=== PATIENT | male | born 1955 | race Caucasian/White ===

== ENCOUNTER 2021-01-06 16:13 | Inpatient (IN) | payer MEDICARE, SELFPAY ==
[2021-01-06] VITALS (11 sets, daily range): BP systolic 83–143; BP diastolic 37–80; PULSE 66–111; RESP 14–22; TEMP 36.3; O2SAT 91–100; BMI 29.2
--- NOTE | 2021-01-06 17:17 | XRR_ITS ---
PROCEDURE INFORMATION: Exam: XR Chest Exam date and time: 01/06/2021 5:17 PM Age: 65 years old Clinical indication: Shortness of breath; Additional info: Dyspnea/hypoxia TECHNIQUE: Imaging protocol: XR of the chest. Views: 1 view. COMPARISON: CR Chest 1 [place] [id number] 06/24/2018 7:36 PM FINDINGS: Lungs: Left lung granuloma. Negative for space consolidation. Mild background emphysema. No vascular dilation. Pleural spaces: Unremarkable. No pleural effusion. No pneumothorax. Heart/Mediastinum: Unremarkable. No cardiomegaly. Bones/joints: Unremarkable. XR/XR chest 1V portable [id number] IMPRESSION: No focal acute pulmonary disease.
[2021-01-06 17:27] LABS: Basophils % 0.1 %; Hematocrit 45.1 % (42.0-52.0); Hemoglobin 14.3 g/dL (11.7-16.6); Lymphocytes # 0.9 10^3/uL (0.8-4.8); Lymphocytes % 8.3 %; Mean Corpuscular HGB Conc 31.7 g/dL (30.0-36.0); Mean Corpuscular Hemoglobin 29.6 pg (28.0-34.0); Mean Corpuscular Volume 93.4 fl (80-94); Mean Platelet Volume 12.2 fL (7.4-10.4); Monocytes % 9.3 %; Neutrophils % 81.8 %; Nucleated Red Blood Cells % 0 %; Platelet Count 160 10^3/cmm (130-400); Red Blood Count 4.83 10^6/uL (4.1-5.3); Red Cell Distribution Width 14.4 % (12.1-15.1); White Blood Count 11.1 10^3/uL (4.0-10.0)
--- NOTE | 2021-01-06 17:43 | W.ED.DIZZY ---
Documented by User: Nas Hewitt DO 01/13/21 06:06 HPI - Dizziness General: Chief Complaint: ER Hold Stated Complaint: SOB/ DIZZY/ HEADACHE Time Seen by Provider: 01/06/21 16:19 History of Present Illness: HPI Narrative: 65-year-old male comes in complaining of 3 days of shortness of breath weakness dizziness initially had some diarrhea. He is very reporting that he had some tachycardia at home but never had any chest pain EMS reported heart rate of 60s on arrival. His oxygen saturation on room air in the exam room was in the mid 80s. Improved to low 90s with 2 to 3 L by nasal cannula. MD elicited complaint: dizziness and lightheadedness Timing: gradual onset Severity: moderate Description: lightheadedness Exacerbating factors: movement/ambulation and exertion Relieving factors: rest and lying down Associated symptoms: Reports cough, fevers/chills, headache(s), malaise, nausea, nasal congestion, short of breath, vomiting and weakness; Denies chest pain, chills, diaphoresis, ear discharge, ear pressure, palpitations, rash, syncope or tinnitus Associated neuro symptoms: Deny confusion, difficulty speaking, dysphagia, diplopia, extremity weakness, facial numbness, facial weakness, gait changes, numbness in extremities or visual changes Review of Systems Const: Reports: malaise; Denies: chills or diaphoresis ENMT: Reports: nasal congestion; Denies: ear discharge or tinnitus Card: Denies: chest pain, palpitations or syncope Resp: Denies: dyspnea, productive cough or non-productive cough GI: Reports: nausea and vomiting; Denies: dysphagia : Denies: flank pain, dysuria, urinary frequency or urinary urgency Skin/Breast: Denies: rash or pruritus Neuro: Reports: headache(s); Denies: numbness in extremities or confusion PFSH ED PFSH: Medical History (Updated 01/07/21 @ 04:04 by Awilda Galvan MD) Bipolar affective Depression Hemolysis Hyperlipidemia Hypertension Hypothyroidism Neuropathy Psoriasis Surgical History (Updated 01/07/21 @ 02:02 by Awilda Galvan MD) History of cholecystectomy (1989) History of knee surgery Right and left History of shoulder surgery (1990) Physical Exam Const: COMMON NORMALS: no acute distress GENERAL APPEARANCE: cooperative and comfortable ORIENTATION/CONSCIOUSNESS: Yes awake, Yes oriented to person, Yes oriented to place and Yes oriented to time HENMT: COMMON NORMALS: normocephalic, atraumatic and hearing grossly normal bilaterally HEAD & SCALP: normocephalic and atraumatic Neck/C-Spine: COMMON NORMALS: no JVD Resp: AUSCULTATION: rhonchi, wheezes and diminished lung sounds Cardio: COMMON NORMALS: no JVD, regular rate, regular rhythm and No murmurs present (Cardio) RATE: regular rate RHYTHM: regular rhythm GI: COMMON NORMALS: Soft to palpation and No hepatosplenomegaly present AUSCULTATION: Yes normoactive bowel sounds PALPATION: Yes Soft to palpation, No Tenderness to palpation present (GI), No Guarding due to palpation present (GI) and Yes No hepatosplenomegaly present Extremity: COMMON NORMALS: normal to inspection, capillary refill normal, no clubbing, cyanosis or edema, no calf tenderness and no pedal edema Neuro: SENSORIUM/ORIENTATION: Yes oriented to person, Yes oriented to place and Yes oriented to time Skin: COMMON NORMALS: no rashes or lesions noted GENERAL SKIN EXAM: no rashes or lesions noted Course Vital Signs: Vital signs: Vital Signs Temperature 97.9 F 01/07/21 12:50 Pulse Rate 54 L 01/07/21 12:50 Respiratory Rate 18 01/07/21 12:50 Blood Pressure 120/68 01/07/21 12:50 Pulse Oximetry 98 01/07/21 11:01 MDM - Dizziness MDM Narrative: Medical decision making narrative: Care turned over to Dr. Gresham at change of shift see his note for final diagnosis and disposition Lab Data: Labs: Lab Results 01/06/21 01/06/21 01/06/21 Range/Units 11:35 16:47 16:47 WBC 11.1 H (4.0-10.0) 10^3/ uL RBC 4.83 (4.1-5.3) 10^6/u L Hgb 14.3 (11.7-16.6) g/dL Hct 45.1 (42.0-52.0) % MCV 93.4 (80-94) fl MCH 29.6 (28.0-34.0) pg MCHC 31.7 (30.0-36.0) g/dL RDW 14.4 (12.1-15.1) % Plt Count 160 (130-400) 10^3/c mm MPV 12.2 H (7.4-10.4) fL Neut % (Auto) 81.8 % Lymph % (Auto) 8.3 % [place] % (Auto) 9.3 % Eos % (Auto) 0.0 % Baso % (Auto) 0.1 % Neut # (Auto) 9.10 H (1.8-7.7) 10^3/u L Lymph # (Auto) 0.9 (0.8-4.8) 10^3/u L [place] # (Auto) 1.0 H (0.2-0.9) 10^3/u L Eos # (Auto) 0.0 (0.0-0.8) 10^3/u L Baso # (Auto) 0.0 (0.0-0.1) 10^3/u L Nucleated RBC % (a uto) 0 % Nucleated RBCs # 0.0 /100WBC D-Dimer 0.72 H (0-0.59) ug/mIFE U Specimen Type Arterial Sample Site Radial, right ABG pH 7.07 L* (7.35-7.45) ABG pCO2 45.7 H (35-45) mmHg ABG pO2 194.0 H (80.0-100.0) mmH g ABG HCO3 13.2 L (22-26) mmol/L ABG Base Excess -16.9 L (-2.0-2.0) mmol/ L Justin Test Pos Hematocrit 50.9 (42-52) % O2 Delivery Device Vent O2 Liters/Min % Mechanical Rate 14.0 FiO2 100.0 % PEEP 8.0 cmH20 Application Security Developer ID Rieri Sodium (136-145) mmol/L Potassium (3.5-5.1) mmol/L Chloride (98-107) mmol/L Carbon Dioxide (22-29) mmol/L Anion Gap (5-19) BUN (8-23) mg/dL Creatinine (0.7-1.2) mg/dL GFR Calculation (90-130) mL/min Glucose (65-115) mg/dL Calculated Osmolal ity (285-295) mOsm/k g Lactic Acid (0.5-2.2) mmol/L Uric Acid (3.4-7.0) mg/dL Calcium (8.5-10.5) mg/dL Total Bilirubin (0.15-1.2) mg/dL AST (0-40) U/L ALT (0-41) U/L Alkaline Phosphata se (40-130) IU/L Creatine Kinase (39-308) U/L C-Reactive Protein (0.0-4.9) mg/L Total Protein (6.6-8.7) g/dL Albumin (3.5-5.2) g/dL Globulin (1.3-4.6) g/dL Angiotensin Conver t Enz (9-67) U/L 25-OH Vitamin D To mera (18-72) pg/mL 1,25 Dihydroxy Vit D2 pg/mL 1,25 Dihydroxy Vit D3 pg/mL TSH (0.27-4.20) uIU/ mL Urine Color (Yellow) Urine Appearance (CLEAR) Urine pH (5-7) Ur Specific Gravit y (1.005-1.030) Urine Protein (Negative) Urine Glucose (UA) (Normal) Urine Ketones (Negative) Urine Blood (Negative) Urine Nitrate (Negative) Urine Bilirubin (Negative) Urine Urobilinogen (Negative) mg/dL Ur Leukocyte Layne ase (Negative) Urine RBC (0-2) /hpf Urine WBC (0-5) /hpf Ur Squamous Epith Cells (0-5) /hpf Amorphous Sediment Urine Bacteria (NONE) /hpf Other Casts /lpf Urine Mucus /hpf Ur Random Sodium mmol/L Ur Random Potassiu m mmol/L Ur Random Chloride mmol/L Urine Opiates Scre en (Negative) ng/mL Ur Barbiturates Sc reen (Negative) ng/mL Ur Phencyclidine S crn (Negative) ng/mL Ur Amphetamines Sc reen (Negative) ng/mL U Benzodiazepines Scrn (Negative) ng/mL Urine Cocaine Scre en (Negative) ng/mL U Marijuana (THC) Screen (Negative) ng/mL KIMO Screen (NEGATIVE) Anti-ds DNA IgG Ab IU/mL Nasal/Oral COVID-1 9 PCR Hepatitis C Antibo dy (Nonreactive) SARS-CoV-2 Ag (Rap id) (Negative) Ref Test Comments (Negative) 01/06/21 01/06/21 01/06/21 Range/Units 16:47 16:47 16:47 WBC (4.0-10.0) 10^3/ uL RBC (4.1-5.3) 10^6/u L Hgb (11.7-16.6) g/dL Hct (42.0-52.0) % MCV (80-94) fl MCH (28.0-34.0) pg MCHC (30.0-36.0) g/dL RDW (12.1-15.1) % Plt Count (130-400) 10^3/c mm MPV (7.4-10.4) fL Neut % (Auto) % Lymph % (Auto) % [place] % (Auto) % Eos % (Auto) % Baso % (Auto) % Neut # (Auto) (1.8-7.7) 10^3/u L Lymph # (Auto) (0.8-4.8) 10^3/u L [place] # (Auto) (0.2-0.9) 10^3/u L Eos # (Auto) (0.0-0.8) 10^3/u L Baso # (Auto) (0.0-0.1) 10^3/u L Nucleated RBC % (a uto) % Nucleated RBCs # /100WBC D-Dimer (0-0.59) ug/mIFE U Specimen Type Sample Site ABG pH (7.35-7.45) ABG pCO2 (35-45) mmHg ABG pO2 (80.0-100.0) mmH g ABG HCO3 (22-26) mmol/L ABG Base Excess (-2.0-2.0) mmol/ L Justin Test Hematocrit (42-52) % O2 Delivery Device O2 Liters/Min % Mechanical Rate FiO2 % PEEP cmH20 Application Security Developer ID Sodium 134 L (136-145) mmol/L Potassium 6.1 H (3.5-5.1) mmol/L Chloride 99 (98-107) mmol/L Carbon Dioxide 15 L (22-29) mmol/L Anion Gap 26.1 H (5-19) BUN 152 H* (8-23) mg/dL Creatinine 6.4 H* (0.7-1.2) mg/dL GFR Calculation 8.8 L (90-130) mL/min Glucose 72 (65-115) mg/dL Calculated Osmolal ity 326 H (285-295) mOsm/k g Lactic Acid 0.9 (0.5-2.2) mmol/L Uric Acid (3.4-7.0) mg/dL Calcium 6.8 L (8.5-10.5) mg/dL Total Bilirubin 0.3 (0.15-1.2) mg/dL AST 76 H (0-40) U/L ALT 39 (0-41) U/L Alkaline Phosphata se 57 (40-130) IU/L Creatine Kinase (39-308) U/L C-Reactive Protein 12.0 H (0.0-4.9) mg/L Total Protein 5.7 L (6.6-8.7) g/dL Albumin 3.2 L (3.5-5.2) g/dL Globulin 2.5 (1.3-4.6) g/dL Angiotensin Conver t Enz (9-67) U/L 25-OH Vitamin D To mera (18-72) pg/mL 1,25 Dihydroxy Vit D2 pg/mL 1,25 Dihydroxy Vit D3 pg/mL TSH (0.27-4.20) uIU/ mL Urine Color (Yellow) Urine Appearance (CLEAR) Urine pH (5-7) Ur Specific Gravit y (1.005-1.030) Urine Protein (Negative) Urine Glucose (UA) (Normal) Urine Ketones (Negative) Urine Blood (Negative) Urine Nitrate (Negative) Urine Bilirubin (Negative) Urine Urobilinogen (Negative) mg/dL Ur Leukocyte Layne ase (Negative) Urine RBC (0-2) /hpf Urine WBC (0-5) /hpf Ur Squamous Epith Cells (0-5) /hpf Amorphous Sediment Urine Bacteria (NONE) /hpf Other Casts /lpf Urine Mucus /hpf Ur Random Sodium mmol/L Ur Random Potassiu m mmol/L Ur Random Chloride mmol/L Urine Opiates Scre en (Negative) ng/mL Ur Barbiturates Sc reen (Negative) ng/mL Ur Phencyclidine S crn (Negative) ng/mL Ur Amphetamines Sc reen (Negative) ng/mL U Benzodiazepines Scrn (Negative) ng/mL Urine Cocaine Scre en (Negative) ng/mL U Marijuana (THC) Screen (Negative) ng/mL KIMO Screen (NEGATIVE) Anti-ds DNA IgG Ab IU/mL Nasal/Oral COVID-1 9 PCR Hepatitis C Antibo dy Non-reactive (Nonreactive) SARS-CoV-2 Ag (Rap id) (Negative) Ref Test Comments (Negative) 01/06/21 01/06/21 01/06/21 Range/Units 17:39 17:39 18:03 WBC (4.0-10.0) 10^3/ uL RBC (4.1-5.3) 10^6/u L Hgb (11.7-16.6) g/dL Hct (42.0-52.0) % MCV (80-94) fl MCH (28.0-34.0) pg MCHC (30.0-36.0) g/dL RDW (12.1-15.1) % Plt Count (130-400) 10^3/c mm MPV (7.4-10.4) fL Neut % (Auto) % Lymph % (Auto) % [place] % (Auto) % Eos % (Auto) % Baso % (Auto) % Neut # (Auto) (1.8-7.7) 10^3/u L Lymph # (Auto) (0.8-4.8) 10^3/u L [place] # (Auto) (0.2-0.9) 10^3/u L Eos # (Auto) (0.0-0.8) 10^3/u L Baso # (Auto) (0.0-0.1) 10^3/u L Nucleated RBC % (a uto) % Nucleated RBCs # /100WBC D-Dimer (0-0.59) ug/mIFE U Specimen Type Arterial Sample Site Radial, left ABG pH 7.19 L (7.35-7.45) ABG pCO2 31.8 L (35-45) mmHg ABG pO2 87.6 (80.0-100.0) mmH g ABG HCO3 12.1 L (22-26) mmol/L ABG Base Excess -14.9 L (-2.0-2.0) mmol/ L Justin Test Pos Hematocrit 48.2 (42-52) % O2 Delivery Device Nc O2 Liters/Min 3.0 % Mechanical Rate FiO2 32.0 % PEEP cmH20 Application Security Developer ID [place] Sodium (136-145) mmol/L Potassium (3.5-5.1) mmol/L Chloride (98-107) mmol/L Carbon Dioxide (22-29) mmol/L Anion Gap (5-19) BUN (8-23) mg/dL Creatinine (0.7-1.2) mg/dL GFR Calculation (90-130) mL/min Glucose (65-115) mg/dL Calculated Osmolal ity (285-295) mOsm/k g Lactic Acid (0.5-2.2) mmol/L Uric Acid (3.4-7.0) mg/dL Calcium (8.5-10.5) mg/dL Total Bilirubin (0.15-1.2) mg/dL AST (0-40) U/L ALT (0-41) U/L Alkaline Phosphata se (40-130) IU/L Creatine Kinase (39-308) U/L C-Reactive Protein (0.0-4.9) mg/L Total Protein (6.6-8.7) g/dL Albumin (3.5-5.2) g/dL Globulin (1.3-4.6) g/dL Angiotensin Conver t Enz (9-67) U/L 25-OH Vitamin D To mera (18-72) pg/mL 1,25 Dihydroxy Vit D2 pg/mL 1,25 Dihydroxy Vit D3 pg/mL TSH (0.27-4.20) uIU/ mL Urine Color (Yellow) Urine Appearance (CLEAR) Urine pH (5-7) Ur Specific Gravit y (1.005-1.030) Urine Protein (Negative) Urine Glucose (UA) (Normal) Urine Ketones (Negative) Urine Blood (Negative) Urine Nitrate (Negative) Urine Bilirubin (Negative) Urine Urobilinogen (Negative) mg/dL Ur Leukocyte Layne ase (Negative) Urine RBC (0-2) /hpf Urine WBC (0-5) /hpf Ur Squamous Epith Cells (0-5) /hpf Amorphous Sediment Urine Bacteria (NONE) /hpf Other Casts /lpf Urine Mucus /hpf Ur Random Sodium mmol/L Ur Random Potassiu m mmol/L Ur Random Chloride mmol/L Urine Opiates Scre en (Negative) ng/mL Ur Barbiturates Sc reen (Negative) ng/mL Ur Phencyclidine S crn (Negative) ng/mL Ur Amphetamines Sc reen (Negative) ng/mL U Benzodiazepines Scrn (Negative) ng/mL Urine Cocaine Scre en (Negative) ng/mL U Marijuana (THC) Screen (Negative) ng/mL KIMO Screen (NEGATIVE) Anti-ds DNA IgG Ab IU/mL Nasal/Oral COVID-1 9 PCR Detected H Hepatitis C Antibo dy (Nonreactive) SARS-CoV-2 Ag (Rap id) Positive H (Negative) Ref Test Comments (Negative) 01/06/21 01/06/21 01/06/21 Range/Units 20:25 20:25 20:25 WBC (4.0-10.0) 10^3/ uL RBC (4.1-5.3) 10^6/u L Hgb (11.7-16.6) g/dL Hct (42.0-52.0) % MCV (80-94) fl MCH (28.0-34.0) pg MCHC (30.0-36.0) g/dL RDW (12.1-15.1) % Plt Count (130-400) 10^3/c mm MPV (7.4-10.4) fL Neut % (Auto) % Lymph % (Auto) % [place] % (Auto) % Eos % (Auto) % Baso % (Auto) % Neut # (Auto) (1.8-7.7) 10^3/u L Lymph # (Auto) (0.8-4.8) 10^3/u L [place] # (Auto) (0.2-0.9) 10^3/u L Eos # (Auto) (0.0-0.8) 10^3/u L Baso # (Auto) (0.0-0.1) 10^3/u L Nucleated RBC % (a uto) % Nucleated RBCs # /100WBC D-Dimer (0-0.59) ug/mIFE U Specimen Type Sample Site ABG pH (7.35-7.45) ABG pCO2 (35-45) mmHg ABG pO2 (80.0-100.0) mmH g ABG HCO3 (22-26) mmol/L ABG Base Excess (-2.0-2.0) mmol/ L Justin Test Hematocrit (42-52) % O2 Delivery Device O2 Liters/Min % Mechanical Rate FiO2 % PEEP cmH20 Application Security Developer ID Sodium (136-145) mmol/L Potassium (3.5-5.1) mmol/L Chloride (98-107) mmol/L Carbon Dioxide (22-29) mmol/L Anion Gap (5-19) BUN (8-23) mg/dL Creatinine (0.7-1.2) mg/dL GFR Calculation (90-130) mL/min Glucose (65-115) mg/dL Calculated Osmolal ity (285-295) mOsm/k g Lactic Acid (0.5-2.2) mmol/L Uric Acid (3.4-7.0) mg/dL Calcium (8.5-10.5) mg/dL Total Bilirubin (0.15-1.2) mg/dL AST (0-40) U/L ALT (0-41) U/L Alkaline Phosphata se (40-130) IU/L Creatine Kinase (39-308) U/L C-Reactive Protein (0.0-4.9) mg/L Total Protein (6.6-8.7) g/dL Albumin (3.5-5.2) g/dL Globulin (1.3-4.6) g/dL Angiotensin Conver t Enz (9-67) U/L 25-OH Vitamin D To mera (18-72) pg/mL 1,25 Dihydroxy Vit D2 pg/mL 1,25 Dihydroxy Vit D3 pg/mL TSH (0.27-4.20) uIU/ mL Urine Color Yellow (Yellow) Urine Appearance Clear (CLEAR) Urine pH 5 (5-7) Ur Specific Gravit y 1.015 (1.005-1.030) Urine Protein Neg (Negative) Urine Glucose (UA) Norm (Normal) Urine Ketones Negative (Negative) Urine Blood 3+ H (Negative) Urine Nitrate Negative (Negative) Urine Bilirubin Neg (Negative) Urine Urobilinogen Norm (Negative) mg/dL Ur Leukocyte Layne ase Negative (Negative) Urine RBC 0-4 H (0-2) /hpf Urine WBC 0-4 H (0-5) /hpf Ur Squamous Epith Cells 0-4 H (0-5) /hpf Amorphous Sediment Not Reportable Urine Bacteria Trace (NONE) /hpf Other Casts Waxy /lpf Urine Mucus Trace /hpf Ur Random Sodium 56 mmol/L Ur Random Potassiu m 34 mmol/L Ur Random Chloride 15 mmol/L Urine Opiates Scre en Negative (Negative) ng/mL Ur Barbiturates Sc reen Negative (Negative) ng/mL Ur Phencyclidine S crn Negative (Negative) ng/mL Ur Amphetamines Sc reen Positive H (Negative) ng/mL U Benzodiazepines Scrn Negative (Negative) ng/mL Urine Cocaine Scre en Negative (Negative) ng/mL U Marijuana (THC) Screen Negative (Negative) ng/mL KIMO Screen (NEGATIVE) Anti-ds DNA IgG Ab IU/mL Nasal/Oral COVID-1 9 PCR Hepatitis C Antibo dy (Nonreactive) SARS-CoV-2 Ag (Rap id) (Negative) Ref Test Comments (Negative) 01/06/21 01/06/21 01/06/21 Range/Units 21:38 21:38 21:38 WBC (4.0-10.0) 10^3/ uL RBC (4.1-5.3) 10^6/u L Hgb (11.7-16.6) g/dL Hct (42.0-52.0) % MCV (80-94) fl MCH (28.0-34.0) pg MCHC (30.0-36.0) g/dL RDW (12.1-15.1) % Plt Count (130-400) 10^3/c mm MPV (7.4-10.4) fL Neut % (Auto) % Lymph % (Auto) % [place] % (Auto) % Eos % (Auto) % Baso % (Auto) % Neut # (Auto) (1.8-7.7) 10^3/u L Lymph # (Auto) (0.8-4.8) 10^3/u L [place] # (Auto) (0.2-0.9) 10^3/u L Eos # (Auto) (0.0-0.8) 10^3/u L Baso # (Auto) (0.0-0.1) 10^3/u L Nucleated RBC % (a uto) % Nucleated RBCs # /100WBC D-Dimer (0-0.59) ug/mIFE U Specimen Type Sample Site ABG pH (7.35-7.45) ABG pCO2 (35-45) mmHg ABG pO2 (80.0-100.0) mmH g ABG HCO3 (22-26) mmol/L ABG Base Excess (-2.0-2.0) mmol/ L Justin Test Hematocrit (42-52) % O2 Delivery Device O2 Liters/Min % Mechanical Rate FiO2 % PEEP cmH20 Application Security Developer ID Sodium (136-145) mmol/L Potassium (3.5-5.1) mmol/L Chloride (98-107) mmol/L Carbon Dioxide (22-29) mmol/L Anion Gap (5-19) BUN (8-23) mg/dL Creatinine (0.7-1.2) mg/dL GFR Calculation (90-130) mL/min Glucose (65-115) mg/dL Calculated Osmolal ity (285-295) mOsm/k g Lactic Acid (0.5-2.2) mmol/L Uric Acid (3.4-7.0) mg/dL Calcium (8.5-10.5) mg/dL Total Bilirubin (0.15-1.2) mg/dL AST (0-40) U/L ALT (0-41) U/L Alkaline Phosphata se (40-130) IU/L Creatine Kinase (39-308) U/L C-Reactive Protein (0.0-4.9) mg/L Total Protein (6.6-8.7) g/dL Albumin (3.5-5.2) g/dL Globulin (1.3-4.6) g/dL Angiotensin Conver t Enz (9-67) U/L 25-OH Vitamin D To mera 42 (18-72) pg/mL 1,25 Dihydroxy Vit D2 32 pg/mL 1,25 Dihydroxy Vit D3 10 pg/mL TSH (0.27-4.20) uIU/ mL Urine Color (Yellow) Urine Appearance (CLEAR) Urine pH (5-7) Ur Specific Gravit y (1.005-1.030) Urine Protein (Negative) Urine Glucose (UA) (Normal) Urine Ketones (Negative) Urine Blood (Negative) Urine Nitrate (Negative) Urine Bilirubin (Negative) Urine Urobilinogen (Negative) mg/dL Ur Leukocyte Layne ase (Negative) Urine RBC (0-2) /hpf Urine WBC (0-5) /hpf Ur Squamous Epith Cells (0-5) /hpf Amorphous Sediment Urine Bacteria (NONE) /hpf Other Casts /lpf Urine Mucus /hpf Ur Random Sodium mmol/L Ur Random Potassiu m mmol/L Ur Random Chloride mmol/L Urine Opiates Scre en (Negative) ng/mL Ur Barbiturates Sc reen (Negative) ng/mL Ur Phencyclidine S crn (Negative) ng/mL Ur Amphetamines Sc reen (Negative) ng/mL U Benzodiazepines Scrn (Negative) ng/mL Urine Cocaine Scre en (Negative) ng/mL U Marijuana (THC) Screen (Negative) ng/mL KIMO Screen Negative (NEGATIVE) Anti-ds DNA IgG Ab <1 IU/mL Nasal/Oral COVID-1 9 PCR Hepatitis C Antibo dy (Nonreactive) SARS-CoV-2 Ag (Rap id) (Negative) Ref Test Comments (Negative) 01/06/21 01/06/21 01/06/21 Range/Units 21:38 21:38 21:38 WBC (4.0-10.0) 10^3/ uL RBC (4.1-5.3) 10^6/u L Hgb (11.7-16.6) g/dL Hct (42.0-52.0) % MCV (80-94) fl MCH (28.0-34.0) pg MCHC (30.0-36.0) g/dL RDW (12.1-15.1) % Plt Count (130-400) 10^3/c mm MPV (7.4-10.4) fL Neut % (Auto) % Lymph % (Auto) % [place] % (Auto) % Eos % (Auto) % Baso % (Auto) % Neut # (Auto) (1.8-7.7) 10^3/u L Lymph # (Auto) (0.8-4.8) 10^3/u L [place] # (Auto) (0.2-0.9) 10^3/u L Eos # (Auto) (0.0-0.8) 10^3/u L Baso # (Auto) (0.0-0.1) 10^3/u L Nucleated RBC % (a uto) % Nucleated RBCs # /100WBC D-Dimer (0-0.59) ug/mIFE U Specimen Type Sample Site ABG pH (7.35-7.45) ABG pCO2 (35-45) mmHg ABG pO2 (80.0-100.0) mmH g ABG HCO3 (22-26) mmol/L ABG Base Excess (-2.0-2.0) mmol/ L Justin Test Hematocrit (42-52) % O2 Delivery Device O2 Liters/Min % Mechanical Rate FiO2 % PEEP cmH20 Application Security Developer ID Sodium 137 (136-145) mmol/L Potassium 6.1 H (3.5-5.1) mmol/L Chloride 102 (98-107) mmol/L Carbon Dioxide 14 L (22-29) mmol/L Anion Gap 27.1 H (5-19) BUN 145 H* (8-23) mg/dL Creatinine 5.7 H* (0.7-1.2) mg/dL GFR Calculation 10.0 L (90-130) mL/min Glucose 56 L (65-115) mg/dL Calculated Osmolal ity 329 H (285-295) mOsm/k g Lactic Acid (0.5-2.2) mmol/L Uric Acid 8.3 H (3.4-7.0) mg/dL Calcium 7.2 L (8.5-10.5) mg/dL Total Bilirubin 0.3 (0.15-1.2) mg/dL AST 68 H (0-40) U/L ALT 38 (0-41) U/L Alkaline Phosphata se 57 (40-130) IU/L Creatine Kinase 2769 H* (39-308) U/L C-Reactive Protein (0.0-4.9) mg/L Total Protein 5.7 L (6.6-8.7) g/dL Albumin 3.3 L (3.5-5.2) g/dL Globulin 2.4 (1.3-4.6) g/dL Angiotensin Conver t Enz <5 L (9-67) U/L 25-OH Vitamin D To mera (18-72) pg/mL 1,25 Dihydroxy Vit D2 pg/mL 1,25 Dihydroxy Vit D3 pg/mL TSH 0.49 (0.27-4.20) uIU/ mL Urine Color (Yellow) Urine Appearance (CLEAR) Urine pH (5-7) Ur Specific Gravit y (1.005-1.030) Urine Protein (Negative) Urine Glucose (UA) (Normal) Urine Ketones (Negative) Urine Blood (Negative) Urine Nitrate (Negative) Urine Bilirubin (Negative) Urine Urobilinogen (Negative) mg/dL Ur Leukocyte Layne ase (Negative) Urine RBC (0-2) /hpf Urine WBC (0-5) /hpf Ur Squamous Epith Cells (0-5) /hpf Amorphous Sediment Urine Bacteria (NONE) /hpf Other Casts /lpf Urine Mucus /hpf Ur Random Sodium mmol/L Ur Random Potassiu m mmol/L Ur Random Chloride mmol/L Urine Opiates Scre en (Negative) ng/mL Ur Barbiturates Sc reen (Negative) ng/mL Ur Phencyclidine S crn (Negative) ng/mL Ur Amphetamines Sc reen (Negative) ng/mL U Benzodiazepines Scrn (Negative) ng/mL Urine Cocaine Scre en (Negative) ng/mL U Marijuana (THC) Screen (Negative) ng/mL KIMO Screen (NEGATIVE) Anti-ds DNA IgG Ab IU/mL Nasal/Oral COVID-1 9 PCR Hepatitis C Antibo dy (Nonreactive) SARS-CoV-2 Ag (Rap id) (Negative) Ref Test Comments Negative (Negative) 01/06/21 Range/Units 22:25 WBC (4.0-10.0) 10^3/ uL RBC (4.1-5.3) 10^6/u L Hgb (11.7-16.6) g/dL Hct (42.0-52.0) % MCV (80-94) fl MCH (28.0-34.0) pg MCHC (30.0-36.0) g/dL RDW (12.1-15.1) % Plt Count (130-400) 10^3/c mm MPV (7.4-10.4) fL Neut % (Auto) % Lymph % (Auto) % [place] % (Auto) % Eos % (Auto) % Baso % (Auto) % Neut # (Auto) (1.8-7.7) 10^3/u L Lymph # (Auto) (0.8-4.8) 10^3/u L [place] # (Auto) (0.2-0.9) 10^3/u L Eos # (Auto) (0.0-0.8) 10^3/u L Baso # (Auto) (0.0-0.1) 10^3/u L Nucleated RBC % (a uto) % Nucleated RBCs # /100WBC D-Dimer 0.83 H (0-0.59) ug/mIFE U Specimen Type Sample Site ABG pH (7.35-7.45) ABG pCO2 (35-45) mmHg ABG pO2 (80.0-100.0) mmH g ABG HCO3 (22-26) mmol/L ABG Base Excess (-2.0-2.0) mmol/ L Justin Test Hematocrit (42-52) % O2 Delivery Device O2 Liters/Min % Mechanical Rate FiO2 % PEEP cmH20 Application Security Developer ID Sodium (136-145) mmol/L Potassium (3.5-5.1) mmol/L Chloride (98-107) mmol/L Carbon Dioxide (22-29) mmol/L Anion Gap (5-19) BUN (8-23) mg/dL Creatinine (0.7-1.2) mg/dL GFR Calculation (90-130) mL/min Glucose (65-115) mg/dL Calculated Osmolal ity (285-295) mOsm/k g Lactic Acid (0.5-2.2) mmol/L Uric Acid (3.4-7.0) mg/dL Calcium (8.5-10.5) mg/dL Total Bilirubin (0.15-1.2) mg/dL AST (0-40) U/L ALT (0-41) U/L Alkaline Phosphata se (40-130) IU/L Creatine Kinase (39-308) U/L C-Reactive Protein (0.0-4.9) mg/L Total Protein (6.6-8.7) g/dL Albumin (3.5-5.2) g/dL Globulin (1.3-4.6) g/dL Angiotensin Conver t Enz (9-67) U/L 25-OH Vitamin D To mera (18-72) pg/mL 1,25 Dihydroxy Vit D2 pg/mL 1,25 Dihydroxy Vit D3 pg/mL TSH (0.27-4.20) uIU/ mL Urine Color (Yellow) Urine Appearance (CLEAR) Urine pH (5-7) Ur Specific Gravit y (1.005-1.030) Urine Protein (Negative) Urine Glucose (UA) (Normal) Urine Ketones (Negative) Urine Blood (Negative) Urine Nitrate (Negative) Urine Bilirubin (Negative) Urine Urobilinogen (Negative) mg/dL Ur Leukocyte [place] ase (Negative) Urine RBC (0-2) /hpf Urine WBC (0-5) /hpf Ur Squamous Epith Cells (0-5) /hpf Amorphous Sediment Urine Bacteria (NONE) /hpf Other Casts /lpf Urine Mucus /hpf Ur Random Sodium mmol/L Ur Random Potassiu m mmol/L Ur Random Chloride mmol/L Urine Opiates Scre en (Negative) ng/mL Ur Barbiturates Sc reen (Negative) ng/mL Ur Phencyclidine S crn (Negative) ng/mL Ur Amphetamines Sc reen (Negative) ng/mL U Benzodiazepines Scrn (Negative) ng/mL Urine Cocaine Scre en (Negative) ng/mL U Marijuana (THC) Screen (Negative) ng/mL KIMO Screen (NEGATIVE) Anti-ds DNA IgG Ab IU/mL Nasal/Oral COVID-1 9 PCR Hepatitis C Antibo dy (Nonreactive) SARS-CoV-2 Ag (Rap id) (Negative) Ref Test Comments (Negative) Discharge Plan Discharge Patient Disposition: Admitted As Inpatient Admit Provider: Awilda Galvan Clinical Impression: Pneumonia due to COVID-19 virus, Acute renal failure, Hyperkalemia, Respiratory failure with hypoxia and hypercapnia, Metabolic acidosis Condition: Stable Coding Level of Care Code ED Transport Nurse for Chg Fwd Exam Comprehensive Documented by User: Sola Gresham MD 01/07/21 04:22 HPI - Dizziness General: Chief Complaint: ER Hold Stated Complaint: SOB/ DIZZY/ HEADACHE Time Seen by Provider: 01/06/21 16:19 PFSH ED PFSH: Medical History (Updated 01/07/21 @ 04:04 by Awilda Galvan MD) Bipolar affective Depression Hemolysis Hyperlipidemia Hypertension Hypothyroidism Neuropathy Psoriasis Surgical History (Updated 01/07/21 @ 02:02 by Awilda Galvan MD) History of cholecystectomy (1989) History of knee surgery Right and left History of shoulder surgery (1990) Procedures Intubation Time out performed: Yes sedative: Etomidate Mg Given: 20 paralytic: Vecuronium Mg Given: 10 Laryngoscope: Mitch ET Tube Size: 8 ET Tube Uncuffed: Yes Tube Secured Depth (cm): 25 Tube Secured Location: teeth Tube Placement Confirmation: visualized tube passing through cords, equal breath sounds bilaterally and no breath sounds over epigastrium Patient Tolerated Procedure: well Intubation Complications: none Course Reevaluation(s): Reevaluation #1: Patient became much more confused and had increased work of breathing. He had ripped out his IV. I did try him on BiPAP with minimal improvement. Patient had to be intubated due to his difficulty breathing and confusion. Time: 22:57 Vital Signs: Vital signs: Vital Signs Temperature 97.9 F 01/07/21 12:50 Pulse Rate 54 L 01/07/21 12:50 Respiratory Rate 18 01/07/21 12:50 Blood Pressure 120/68 01/07/21 12:50 Pulse Oximetry 98 01/07/21 11:01 MDM - Dizziness MDM Narrative: Medical decision making narrative: Patient presents here with COVID-19 along with acute renal failure. Patient became altered here and had worsening hyperkalemia. Patient's been given insulin only Kayexalate and patient's been seen by nephrology and hospitalist who has been taking care of patient in the ER. Will admit patient to ICU when a bed is available. Lab Data: Labs: Lab Results 01/06/21 01/06/21 01/06/21 Range/Units 11:35 16:47 16:47 WBC 11.1 H (4.0-10.0) 10^3/ uL RBC 4.83 (4.1-5.3) 10^6/u L Hgb 14.3 (11.7-16.6) g/dL Hct 45.1 (42.0-52.0) % MCV 93.4 (80-94) fl MCH 29.6 (28.0-34.0) pg MCHC 31.7 (30.0-36.0) g/dL RDW 14.4 (12.1-15.1) % Plt Count 160 (130-400) 10^3/c mm MPV 12.2 H (7.4-10.4) fL Neut % (Auto) 81.8 % Lymph % (Auto) 8.3 % [place] % (Auto) 9.3 % Eos % (Auto) 0.0 % Baso % (Auto) 0.1 % Neut # (Auto) 9.10 H (1.8-7.7) 10^3/u L Lymph # (Auto) 0.9 (0.8-4.8) 10^3/u L [place] # (Auto) 1.0 H (0.2-0.9) 10^3/u L Eos # (Auto) 0.0 (0.0-0.8) 10^3/u L Baso # (Auto) 0.0 (0.0-0.1) 10^3/u L Nucleated RBC % (a uto) 0 % Nucleated RBCs # 0.0 /100WBC D-Dimer 0.72 H (0-0.59) ug/mIFE U Specimen Type Arterial Sample Site Radial, right ABG pH 7.07 L* (7.35-7.45) ABG pCO2 45.7 H (35-45) mmHg ABG pO2 194.0 H (80.0-100.0) mmH g ABG HCO3 13.2 L (22-26) mmol/L ABG Base Excess -16.9 L (-2.0-2.0) mmol/ L Justin Test Pos Hematocrit 50.9 (42-52) % O2 Delivery Device Vent O2 Liters/Min % Mechanical Rate 14.0 FiO2 100.0 % PEEP 8.0 cmH20 Application Security Developer ID Rieri Sodium (136-145) mmol/L Potassium (3.5-5.1) mmol/L Chloride (98-107) mmol/L Carbon Dioxide (22-29) mmol/L Anion Gap (5-19) BUN (8-23) mg/dL Creatinine (0.7-1.2) mg/dL GFR Calculation (90-130) mL/min Glucose (65-115) mg/dL Calculated Osmolal ity (285-295) mOsm/k g Lactic Acid (0.5-2.2) mmol/L Uric Acid (3.4-7.0) mg/dL Calcium (8.5-10.5) mg/dL Total Bilirubin (0.15-1.2) mg/dL AST (0-40) U/L ALT (0-41) U/L Alkaline Phosphata se (40-130) IU/L Creatine Kinase (39-308) U/L C-Reactive Protein (0.0-4.9) mg/L Total Protein (6.6-8.7) g/dL Albumin (3.5-5.2) g/dL Globulin (1.3-4.6) g/dL Angiotensin Conver t Enz (9-67) U/L 25-OH Vitamin D To mera (18-72) pg/mL 1,25 Dihydroxy Vit D2 pg/mL 1,25 Dihydroxy Vit D3 pg/mL TSH (0.27-4.20) uIU/ mL Urine Color (Yellow) Urine Appearance (CLEAR) Urine pH (5-7) Ur Specific Gravit y (1.005-1.030) Urine Protein (Negative) Urine Glucose (UA) (Normal) Urine Ketones (Negative) Urine Blood (Negative) Urine Nitrate (Negative) Urine Bilirubin (Negative) Urine Urobilinogen (Negative) mg/dL Ur Leukocyte Layne ase (Negative) Urine RBC (0-2) /hpf Urine WBC (0-5) /hpf Ur Squamous Epith Cells (0-5) /hpf Amorphous Sediment Urine Bacteria (NONE) /hpf Other Casts /lpf Urine Mucus /hpf Ur Random Sodium mmol/L Ur Random Potassiu m mmol/L Ur Random Chloride mmol/L Urine Opiates Scre en (Negative) ng/mL Ur Barbiturates Sc reen (Negative) ng/mL Ur Phencyclidine S crn (Negative) ng/mL Ur Amphetamines Sc reen (Negative) ng/mL U Benzodiazepines Scrn (Negative) ng/mL Urine Cocaine Scre en (Negative) ng/mL U Marijuana (THC) Screen (Negative) ng/mL KIMO Screen (NEGATIVE) Anti-ds DNA IgG Ab IU/mL Nasal/Oral COVID-1 9 PCR Hepatitis C Antibo dy (Nonreactive) SARS-CoV-2 Ag (Rap id) (Negative) Ref Test Comments (Negative) 01/06/21 01/06/21 01/06/21 Range/Units 16:47 16:47 16:47 WBC (4.0-10.0) 10^3/ uL RBC (4.1-5.3) 10^6/u L Hgb (11.7-16.6) g/dL Hct (42.0-52.0) % MCV (80-94) fl MCH (28.0-34.0) pg MCHC (30.0-36.0) g/dL RDW (12.1-15.1) % Plt Count (130-400) 10^3/c mm MPV (7.4-10.4) fL Neut % (Auto) % Lymph % (Auto) % [place] % (Auto) % Eos % (Auto) % Baso % (Auto) % Neut # (Auto) (1.8-7.7) 10^3/u L Lymph # (Auto) (0.8-4.8) 10^3/u L [place] # (Auto) (0.2-0.9) 10^3/u L Eos # (Auto) (0.0-0.8) 10^3/u L Baso # (Auto) (0.0-0.1) 10^3/u L Nucleated RBC % (a uto) % Nucleated RBCs # /100WBC D-Dimer (0-0.59) ug/mIFE U Specimen Type Sample Site ABG pH (7.35-7.45) ABG pCO2 (35-45) mmHg ABG pO2 (80.0-100.0) mmH g ABG HCO3 (22-26) mmol/L ABG Base Excess (-2.0-2.0) mmol/ L Justin Test Hematocrit (42-52) % O2 Delivery Device O2 Liters/Min % Mechanical Rate FiO2 % PEEP cmH20 Application Security Developer ID Sodium 134 L (136-145) mmol/L Potassium 6.1 H (3.5-5.1) mmol/L Chloride 99 (98-107) mmol/L Carbon Dioxide 15 L (22-29) mmol/L Anion Gap 26.1 H (5-19) BUN 152 H* (8-23) mg/dL Creatinine 6.4 H* (0.7-1.2) mg/dL GFR Calculation 8.8 L (90-130) mL/min Glucose 72 (65-115) mg/dL Calculated Osmolal ity 326 H (285-295) mOsm/k g Lactic Acid 0.9 (0.5-2.2) mmol/L Uric Acid (3.4-7.0) mg/dL Calcium 6.8 L (8.5-10.5) mg/dL Total Bilirubin 0.3 (0.15-1.2) mg/dL AST 76 H (0-40) U/L ALT 39 (0-41) U/L Alkaline Phosphata se 57 (40-130) IU/L Creatine Kinase (39-308) U/L C-Reactive Protein 12.0 H (0.0-4.9) mg/L Total Protein 5.7 L (6.6-8.7) g/dL Albumin 3.2 L (3.5-5.2) g/dL Globulin 2.5 (1.3-4.6) g/dL Angiotensin Conver t Enz (9-67) U/L 25-OH Vitamin D To mera (18-72) pg/mL 1,25 Dihydroxy Vit D2 pg/mL 1,25 Dihydroxy Vit D3 pg/mL TSH (0.27-4.20) uIU/ mL Urine Color (Yellow) Urine Appearance (CLEAR) Urine pH (5-7) Ur Specific Gravit y (1.005-1.030) Urine Protein (Negative) Urine Glucose (UA) (Normal) Urine Ketones (Negative) Urine Blood (Negative) Urine Nitrate (Negative) Urine Bilirubin (Negative) Urine Urobilinogen (Negative) mg/dL Ur Leukocyte Layne ase (Negative) Urine RBC (0-2) /hpf Urine WBC (0-5) /hpf Ur Squamous Epith Cells (0-5) /hpf Amorphous Sediment Urine Bacteria (NONE) /hpf Other Casts /lpf Urine Mucus /hpf Ur Random Sodium mmol/L Ur Random Potassiu m mmol/L Ur Random Chloride mmol/L Urine Opiates Scre en (Negative) ng/mL Ur Barbiturates Sc reen (Negative) ng/mL Ur Phencyclidine S crn (Negative) ng/mL Ur Amphetamines Sc reen (Negative) ng/mL U Benzodiazepines Scrn (Negative) ng/mL Urine Cocaine Scre en (Negative) ng/mL U Marijuana (THC) Screen (Negative) ng/mL KIMO Screen (NEGATIVE) Anti-ds DNA IgG Ab IU/mL Nasal/Oral COVID-1 9 PCR Hepatitis C Antibo dy Non-reactive (Nonreactive) SARS-CoV-2 Ag (Rap id) (Negative) Ref Test Comments (Negative) 01/06/21 01/06/21 01/06/21 Range/Units 17:39 17:39 18:03 WBC (4.0-10.0) 10^3/ uL RBC (4.1-5.3) 10^6/u L Hgb (11.7-16.6) g/dL Hct (42.0-52.0) % MCV (80-94) fl MCH (28.0-34.0) pg MCHC (30.0-36.0) g/dL RDW (12.1-15.1) % Plt Count (130-400) 10^3/c mm MPV (7.4-10.4) fL Neut % (Auto) % Lymph % (Auto) % [place] % (Auto) % Eos % (Auto) % Baso % (Auto) % Neut # (Auto) (1.8-7.7) 10^3/u L Lymph # (Auto) (0.8-4.8) 10^3/u L [place] # (Auto) (0.2-0.9) 10^3/u L Eos # (Auto) (0.0-0.8) 10^3/u L Baso # (Auto) (0.0-0.1) 10^3/u L Nucleated RBC % (a uto) % Nucleated RBCs # /100WBC D-Dimer (0-0.59) ug/mIFE U Specimen Type Arterial Sample Site Radial, left ABG pH 7.19 L (7.35-7.45) ABG pCO2 31.8 L (35-45) mmHg ABG pO2 87.6 (80.0-100.0) mmH g ABG HCO3 12.1 L (22-26) mmol/L ABG Base Excess -14.9 L (-2.0-2.0) mmol/ L Justin Test Pos Hematocrit 48.2 (42-52) % O2 Delivery Device Nc O2 Liters/Min 3.0 % Mechanical Rate FiO2 32.0 % PEEP cmH20 Application Security Developer ID Monro Sodium (136-145) mmol/L Potassium (3.5-5.1) mmol/L Chloride (98-107) mmol/L Carbon Dioxide (22-29) mmol/L Anion Gap (5-19) BUN (8-23) mg/dL Creatinine (0.7-1.2) mg/dL GFR Calculation (90-130) mL/min Glucose (65-115) mg/dL Calculated Osmolal ity (285-295) mOsm/k g Lactic Acid (0.5-2.2) mmol/L Uric Acid (3.4-7.0) mg/dL Calcium (8.5-10.5) mg/dL Total Bilirubin (0.15-1.2) mg/dL AST (0-40) U/L ALT (0-41) U/L Alkaline Phosphata se (40-130) IU/L Creatine Kinase (39-308) U/L C-Reactive Protein (0.0-4.9) mg/L Total Protein (6.6-8.7) g/dL Albumin (3.5-5.2) g/dL Globulin (1.3-4.6) g/dL Angiotensin Conver t Enz (9-67) U/L 25-OH Vitamin D To mera (18-72) pg/mL 1,25 Dihydroxy Vit D2 pg/mL 1,25 Dihydroxy Vit D3 pg/mL TSH (0.27-4.20) uIU/ mL Urine Color (Yellow) Urine Appearance (CLEAR) Urine pH (5-7) Ur Specific Gravit y (1.005-1.030) Urine Protein (Negative) Urine Glucose (UA) (Normal) Urine Ketones (Negative) Urine Blood (Negative) Urine Nitrate (Negative) Urine Bilirubin (Negative) Urine Urobilinogen (Negative) mg/dL Ur Leukocyte Layne ase (Negative) Urine RBC (0-2) /hpf Urine WBC (0-5) /hpf Ur Squamous Epith Cells (0-5) /hpf Amorphous Sediment Urine Bacteria (NONE) /hpf Other Casts /lpf Urine Mucus /hpf Ur Random Sodium mmol/L Ur Random Potassiu m mmol/L Ur Random Chloride mmol/L Urine Opiates Scre en (Negative) ng/mL Ur Barbiturates Sc reen (Negative) ng/mL Ur Phencyclidine S crn (Negative) ng/mL Ur Amphetamines Sc reen (Negative) ng/mL U Benzodiazepines Scrn (Negative) ng/mL Urine Cocaine Scre en (Negative) ng/mL U Marijuana (THC) Screen (Negative) ng/mL KIMO Screen (NEGATIVE) Anti-ds DNA IgG Ab IU/mL Nasal/Oral COVID-1 9 PCR Detected H Hepatitis C Antibo dy (Nonreactive) SARS-CoV-2 Ag (Rap id) Positive H (Negative) Ref Test Comments (Negative) 01/06/21 01/06/21 01/06/21 Range/Units 20:25 20:25 20:25 WBC (4.0-10.0) 10^3/ uL RBC (4.1-5.3) 10^6/u L Hgb (11.7-16.6) g/dL Hct (42.0-52.0) % MCV (80-94) fl MCH (28.0-34.0) pg MCHC (30.0-36.0) g/dL RDW (12.1-15.1) % Plt Count (130-400) 10^3/c mm MPV (7.4-10.4) fL Neut % (Auto) % Lymph % (Auto) % [place] % (Auto) % Eos % (Auto) % Baso % (Auto) % Neut # (Auto) (1.8-7.7) 10^3/u L Lymph # (Auto) (0.8-4.8) 10^3/u L [place] # (Auto) (0.2-0.9) 10^3/u L Eos # (Auto) (0.0-0.8) 10^3/u L Baso # (Auto) (0.0-0.1) 10^3/u L Nucleated RBC % (a uto) % Nucleated RBCs # /100WBC D-Dimer (0-0.59) ug/mIFE U Specimen Type Sample Site ABG pH (7.35-7.45) ABG pCO2 (35-45) mmHg ABG pO2 (80.0-100.0) mmH g ABG HCO3 (22-26) mmol/L ABG Base Excess (-2.0-2.0) mmol/ L Justin Test Hematocrit (42-52) % O2 Delivery Device O2 Liters/Min % Mechanical Rate FiO2 % PEEP cmH20 Application Security Developer ID Sodium (136-145) mmol/L Potassium (3.5-5.1) mmol/L Chloride (98-107) mmol/L Carbon Dioxide (22-29) mmol/L Anion Gap (5-19) BUN (8-23) mg/dL Creatinine (0.7-1.2) mg/dL GFR Calculation (90-130) mL/min Glucose (65-115) mg/dL Calculated Osmolal ity (285-295) mOsm/k g Lactic Acid (0.5-2.2) mmol/L Uric Acid (3.4-7.0) mg/dL Calcium (8.5-10.5) mg/dL Total Bilirubin (0.15-1.2) mg/dL AST (0-40) U/L ALT (0-41) U/L Alkaline Phosphata se (40-130) IU/L Creatine Kinase (39-308) U/L C-Reactive Protein (0.0-4.9) mg/L Total Protein (6.6-8.7) g/dL Albumin (3.5-5.2) g/dL Globulin (1.3-4.6) g/dL Angiotensin Conver t Enz (9-67) U/L 25-OH Vitamin D To mera (18-72) pg/mL 1,25 Dihydroxy Vit D2 pg/mL 1,25 Dihydroxy Vit D3 pg/mL TSH (0.27-4.20) uIU/ mL Urine Color Yellow (Yellow) Urine Appearance Clear (CLEAR) Urine pH 5 (5-7) Ur Specific Gravit y 1.015 (1.005-1.030) Urine Protein Neg (Negative) Urine Glucose (UA) Norm (Normal) Urine Ketones Negative (Negative) Urine Blood 3+ H (Negative) Urine Nitrate Negative (Negative) Urine Bilirubin Neg (Negative) Urine Urobilinogen Norm (Negative) mg/dL Ur Leukocyte Layne ase Negative (Negative) Urine RBC 0-4 H (0-2) /hpf Urine WBC 0-4 H (0-5) /hpf Ur Squamous Epith Cells 0-4 H (0-5) /hpf Amorphous Sediment Not Reportable Urine Bacteria Trace (NONE) /hpf Other Casts Waxy /lpf Urine Mucus Trace /hpf Ur Random Sodium 56 mmol/L Ur Random Potassiu m 34 mmol/L Ur Random Chloride 15 mmol/L Urine Opiates Scre en Negative (Negative) ng/mL Ur Barbiturates Sc reen Negative (Negative) ng/mL Ur Phencyclidine S crn Negative (Negative) ng/mL Ur Amphetamines Sc reen Positive H (Negative) ng/mL U Benzodiazepines Scrn Negative (Negative) ng/mL Urine Cocaine Scre en Negative (Negative) ng/mL U Marijuana (THC) Screen Negative (Negative) ng/mL KIMO Screen (NEGATIVE) Anti-ds DNA IgG Ab IU/mL Nasal/Oral COVID-1 9 PCR Hepatitis C Antibo dy (Nonreactive) SARS-CoV-2 Ag (Rap id) (Negative) Ref Test Comments (Negative) 01/06/21 01/06/21 01/06/21 Range/Units 21:38 21:38 21:38 WBC (4.0-10.0) 10^3/ uL RBC (4.1-5.3) 10^6/u L Hgb (11.7-16.6) g/dL Hct (42.0-52.0) % MCV (80-94) fl MCH (28.0-34.0) pg MCHC (30.0-36.0) g/dL RDW (12.1-15.1) % Plt Count (130-400) 10^3/c mm MPV (7.4-10.4) fL Neut % (Auto) % Lymph % (Auto) % [place] % (Auto) % Eos % (Auto) % Baso % (Auto) % Neut # (Auto) (1.8-7.7) 10^3/u L Lymph # (Auto) (0.8-4.8) 10^3/u L [place] # (Auto) (0.2-0.9) 10^3/u L Eos # (Auto) (0.0-0.8) 10^3/u L Baso # (Auto) (0.0-0.1) 10^3/u L Nucleated RBC % (a uto) % Nucleated RBCs # /100WBC D-Dimer (0-0.59) ug/mIFE U Specimen Type Sample Site ABG pH (7.35-7.45) ABG pCO2 (35-45) mmHg ABG pO2 (80.0-100.0) mmH g ABG HCO3 (22-26) mmol/L ABG Base Excess (-2.0-2.0) mmol/ L Justin Test Hematocrit (42-52) % O2 Delivery Device O2 Liters/Min % Mechanical Rate FiO2 % PEEP cmH20 Application Security Developer ID Sodium (136-145) mmol/L Potassium (3.5-5.1) mmol/L Chloride (98-107) mmol/L Carbon Dioxide (22-29) mmol/L Anion Gap (5-19) BUN (8-23) mg/dL Creatinine (0.7-1.2) mg/dL GFR Calculation (90-130) mL/min Glucose (65-115) mg/dL Calculated Osmolal ity (285-295) mOsm/k g Lactic Acid (0.5-2.2) mmol/L Uric Acid (3.4-7.0) mg/dL Calcium (8.5-10.5) mg/dL Total Bilirubin (0.15-1.2) mg/dL AST (0-40) U/L ALT (0-41) U/L Alkaline Phosphata se (40-130) IU/L Creatine Kinase (39-308) U/L C-Reactive Protein (0.0-4.9) mg/L Total Protein (6.6-8.7) g/dL Albumin (3.5-5.2) g/dL Globulin (1.3-4.6) g/dL Angiotensin Conver t Enz (9-67) U/L 25-OH Vitamin D To mera 42 (18-72) pg/mL 1,25 Dihydroxy Vit D2 32 pg/mL 1,25 Dihydroxy Vit D3 10 pg/mL TSH (0.27-4.20) uIU/ mL Urine Color (Yellow) Urine Appearance (CLEAR) Urine pH (5-7) Ur Specific Gravit y (1.005-1.030) Urine Protein (Negative) Urine Glucose (UA) (Normal) Urine Ketones (Negative) Urine Blood (Negative) Urine Nitrate (Negative) Urine Bilirubin (Negative) Urine Urobilinogen (Negative) mg/dL Ur Leukocyte Layne ase (Negative) Urine RBC (0-2) /hpf Urine WBC (0-5) /hpf Ur Squamous Epith Cells (0-5) /hpf Amorphous Sediment Urine Bacteria (NONE) /hpf Other Casts /lpf Urine Mucus /hpf Ur Random Sodium mmol/L Ur Random Potassiu m mmol/L Ur Random Chloride mmol/L Urine Opiates Scre en (Negative) ng/mL Ur Barbiturates Sc reen (Negative) ng/mL Ur Phencyclidine S crn (Negative) ng/mL Ur Amphetamines Sc reen (Negative) ng/mL U Benzodiazepines Scrn (Negative) ng/mL Urine Cocaine Scre en (Negative) ng/mL U Marijuana (THC) Screen (Negative) ng/mL KIMO Screen Negative (NEGATIVE) Anti-ds DNA IgG Ab <1 IU/mL Nasal/Oral COVID-1 9 PCR Hepatitis C Antibo dy (Nonreactive) SARS-CoV-2 Ag (Rap id) (Negative) Ref Test Comments (Negative) 01/06/21 01/06/21 01/06/21 Range/Units 21:38 21:38 21:38 WBC (4.0-10.0) 10^3/ uL RBC (4.1-5.3) 10^6/u L Hgb (11.7-16.6) g/dL Hct (42.0-52.0) % MCV (80-94) fl MCH (28.0-34.0) pg MCHC (30.0-36.0) g/dL RDW (12.1-15.1) % Plt Count (130-400) 10^3/c mm MPV (7.4-10.4) fL Neut % (Auto) % Lymph % (Auto) % [place] % (Auto) % Eos % (Auto) % Baso % (Auto) % Neut # (Auto) (1.8-7.7) 10^3/u L Lymph # (Auto) (0.8-4.8) 10^3/u L [place] # (Auto) (0.2-0.9) 10^3/u L Eos # (Auto) (0.0-0.8) 10^3/u L Baso # (Auto) (0.0-0.1) 10^3/u L Nucleated RBC % (a uto) % Nucleated RBCs # /100WBC D-Dimer (0-0.59) ug/mIFE U Specimen Type Sample Site ABG pH (7.35-7.45) ABG pCO2 (35-45) mmHg ABG pO2 (80.0-100.0) mmH g ABG HCO3 (22-26) mmol/L ABG Base Excess (-2.0-2.0) mmol/ L Justin Test Hematocrit (42-52) % O2 Delivery Device O2 Liters/Min % Mechanical Rate FiO2 % PEEP cmH20 Application Security Developer ID Sodium 137 (136-145) mmol/L Potassium 6.1 H (3.5-5.1) mmol/L Chloride 102 (98-107) mmol/L Carbon Dioxide 14 L (22-29) mmol/L Anion Gap 27.1 H (5-19) BUN 145 H* (8-23) mg/dL Creatinine 5.7 H* (0.7-1.2) mg/dL GFR Calculation 10.0 L (90-130) mL/min Glucose 56 L (65-115) mg/dL Calculated Osmolal ity 329 H (285-295) mOsm/k g Lactic Acid (0.5-2.2) mmol/L Uric Acid 8.3 H (3.4-7.0) mg/dL Calcium 7.2 L (8.5-10.5) mg/dL Total Bilirubin 0.3 (0.15-1.2) mg/dL AST 68 H (0-40) U/L ALT 38 (0-41) U/L Alkaline Phosphata se 57 (40-130) IU/L Creatine Kinase 2769 H* (39-308) U/L C-Reactive Protein (0.0-4.9) mg/L Total Protein 5.7 L (6.6-8.7) g/dL Albumin 3.3 L (3.5-5.2) g/dL Globulin 2.4 (1.3-4.6) g/dL Angiotensin Conver t Enz <5 L (9-67) U/L 25-OH Vitamin D To mera (18-72) pg/mL 1,25 Dihydroxy Vit D2 pg/mL 1,25 Dihydroxy Vit D3 pg/mL TSH 0.49 (0.27-4.20) uIU/ mL Urine Color (Yellow) Urine Appearance (CLEAR) Urine pH (5-7) Ur Specific Gravit y (1.005-1.030) Urine Protein (Negative) Urine Glucose (UA) (Normal) Urine Ketones (Negative) Urine Blood (Negative) Urine Nitrate (Negative) Urine Bilirubin (Negative) Urine Urobilinogen (Negative) mg/dL Ur Leukocyte Layne ase (Negative) Urine RBC (0-2) /hpf Urine WBC (0-5) /hpf Ur Squamous Epith Cells (0-5) /hpf Amorphous Sediment Urine Bacteria (NONE) /hpf Other Casts /lpf Urine Mucus /hpf Ur Random Sodium mmol/L Ur Random Potassiu m mmol/L Ur Random Chloride mmol/L Urine Opiates Scre en (Negative) ng/mL Ur Barbiturates Sc reen (Negative) ng/mL Ur Phencyclidine S crn (Negative) ng/mL Ur Amphetamines Sc reen (Negative) ng/mL U Benzodiazepines Scrn (Negative) ng/mL Urine Cocaine Scre en (Negative) ng/mL U Marijuana (THC) Screen (Negative) ng/mL KIMO Screen (NEGATIVE) Anti-ds DNA IgG Ab IU/mL Nasal/Oral COVID-1 9 PCR Hepatitis C Antibo dy (Nonreactive) SARS-CoV-2 Ag (Rap id) (Negative) Ref Test Comments Negative (Negative) 01/06/21 Range/Units 22:25 WBC (4.0-10.0) 10^3/ uL RBC (4.1-5.3) 10^6/u L Hgb (11.7-16.6) g/dL Hct (42.0-52.0) % MCV (80-94) fl MCH (28.0-34.0) pg MCHC (30.0-36.0) g/dL RDW (12.1-15.1) % Plt Count (130-400) 10^3/c mm MPV (7.4-10.4) fL Neut % (Auto) % Lymph % (Auto) % [place] % (Auto) % Eos % (Auto) % Baso % (Auto) % Neut # (Auto) (1.8-7.7) 10^3/u L Lymph # (Auto) (0.8-4.8) 10^3/u L [place] # (Auto) (0.2-0.9) 10^3/u L Eos # (Auto) (0.0-0.8) 10^3/u L Baso # (Auto) (0.0-0.1) 10^3/u L Nucleated RBC % (a uto) % Nucleated RBCs # /100WBC D-Dimer 0.83 H (0-0.59) ug/mIFE U Specimen Type Sample Site ABG pH (7.35-7.45) ABG pCO2 (35-45) mmHg ABG pO2 (80.0-100.0) mmH g ABG HCO3 (22-26) mmol/L ABG Base Excess (-2.0-2.0) mmol/ L Justin Test Hematocrit (42-52) % O2 Delivery Device O2 Liters/Min % Mechanical Rate FiO2 % PEEP cmH20 Application Security Developer ID Sodium (136-145) mmol/L Potassium (3.5-5.1) mmol/L Chloride (98-107) mmol/L Carbon Dioxide (22-29) mmol/L Anion Gap (5-19) BUN (8-23) mg/dL Creatinine (0.7-1.2) mg/dL GFR Calculation (90-130) mL/min Glucose (65-115) mg/dL Calculated Osmolal ity (285-295) mOsm/k g Lactic Acid (0.5-2.2) mmol/L Uric Acid (3.4-7.0) mg/dL Calcium (8.5-10.5) mg/dL Total Bilirubin (0.15-1.2) mg/dL AST (0-40) U/L ALT (0-41) U/L Alkaline Phosphata se (40-130) IU/L Creatine Kinase (39-308) U/L C-Reactive Protein (0.0-4.9) mg/L Total Protein (6.6-8.7) g/dL Albumin (3.5-5.2) g/dL Globulin (1.3-4.6) g/dL Angiotensin Conver t Enz (9-67) U/L 25-OH Vitamin D To mera (18-72) pg/mL 1,25 Dihydroxy Vit D2 pg/mL 1,25 Dihydroxy Vit D3 pg/mL TSH (0.27-4.20) uIU/ mL Urine Color (Yellow) Urine Appearance (CLEAR) Urine pH (5-7) Ur Specific Gravit y (1.005-1.030) Urine Protein (Negative) Urine Glucose (UA) (Normal) Urine Ketones (Negative) Urine Blood (Negative) Urine Nitrate (Negative) Urine Bilirubin (Negative) Urine Urobilinogen (Negative) mg/dL Ur Leukocyte Layne ase (Negative) Urine RBC (0-2) /hpf Urine WBC (0-5) /hpf Ur Squamous Epith Cells (0-5) /hpf Amorphous Sediment Urine Bacteria (NONE) /hpf Other Casts /lpf Urine Mucus /hpf Ur Random Sodium mmol/L Ur Random Potassiu m mmol/L Ur Random Chloride mmol/L Urine Opiates Scre en (Negative) ng/mL Ur Barbiturates Sc reen (Negative) ng/mL Ur Phencyclidine S crn (Negative) ng/mL Ur Amphetamines Sc reen (Negative) ng/mL U Benzodiazepines Scrn (Negative) ng/mL Urine Cocaine Scre en (Negative) ng/mL U Marijuana (THC) Screen (Negative) ng/mL KIMO Screen (NEGATIVE) Anti-ds DNA IgG Ab IU/mL Nasal/Oral COVID-1 9 PCR Hepatitis C Antibo dy (Nonreactive) SARS-CoV-2 Ag (Rap id) (Negative) Ref Test Comments (Negative) EKG Data^: EKG 1: Attestation: I personally reviewed and interpreted this EKG as follows: EKG interpretation date: 01/06/21 EKG interpretation time: 18:39 Interpretation: nsr hr [address] elevation peaked t waves in v4 and v5 qrs 99 qtc 415 Critical Care Time Critical Care Time: Critical Care Time: Yes Total Critical Care Time: 35 Attestation: This case had a high probability of a clinically significant, sudden, or life threatening deterioration of this patient's condition which required my full and direct attention, intervention and personal management. Critical care time excludes times for procedure Discharge Plan Discharge Patient Disposition: Admitted As Inpatient Admit Provider: Awilda Galvan Clinical Impression: Pneumonia due to COVID-19 virus, Acute renal failure, Hyperkalemia, Respiratory failure with hypoxia and hypercapnia, Metabolic acidosis Condition: Stable Coding Level of Care Code ED Transport Nurse for Chg Fwd Exam Comprehensive
[2021-01-06 17:48] LABS: D Dimer 0.72 ug/mIFEU (0-0.59)
[2021-01-06 17:50] LABS: Alanine Aminotransferase 39 U/L (0-41); Albumin Level 3.2 g/dL (3.5-5.2); Alkaline Phosphatase 57 IU/L (40-130); Anion Gap 26.1 (5-19); Aspartate Amino Transferase 76 U/L (0-40); Calcium 6.8 mg/dL (8.5-10.5); Carbon Dioxide 15 mmol/L (22-29); Chloride 99 mmol/L (98-107); Globulin 2.5 g/dL (1.3-4.6); Glomerular Filtration Rate 8.8 mL/min (90-130); Glucose 72 mg/dL (65-115); Potassium 6.1 mmol/L (3.5-5.1); Sodium 134 mmol/L (136-145); Total Bilirubin 0.3 mg/dL (0.15-1.2); Total Protein 5.7 g/dL (6.6-8.7)
[2021-01-06 17:51] LABS: Lactic Sepsis W/Reflex 0.9 mmol/L (0.5-2.2)
[2021-01-06 18:02] LABS: Blood Urea Nitrogen 152 mg/dL (8-23); Osmolality Calculated 326 mOsm/kg (285-295)
[2021-01-06 18:15] LABS: ABG PCO2 31.8 mmHg (35-45); ABG PH Result 7.19 (7.35-7.45); Arterial Blood Gas Hematocrit 48.2 % (42-52); Base Excess ABG -14.9 mmol/L (-2.0-2.0); Blood Gas Allen Test Pos; Blood Gas Sample Type Arterial; HCO3 ABG 12.1 mmol/L (22-26); PO2 ABG 87.6 mmHg (80.0-100.0)
[2021-01-06 18:16] LABS: Blood Gas Operator Identificat MONRO; Blood Gas Sample Site Radial, left; Oxygen Device NC
--- NOTE | 2021-01-06 18:18 | ECG_ITS ---
[facility] Test Date: 2021-01-06 Pat Name: Connor Raza Department: Room: EDIP Gender: Male [employer]: : [id number] Requested By: Sola Gresham Order Number: [id number] Reading MD: CLARISSA MERINO Measurements Intervals [place] Rate: 71 P: 76 AR: 155 QRS: 24 QRSD: 99 T: 31 QT: 392 QTc: 429 Interpretive Statements SINUS RHYTHM Compared to ECG 06/24/2018 21:54:34 ST (T wave) deviation now present Electronically Signed On 01-07-2021 21:08:44 CDT by CLARISSA MERINO [email or web address]
[2021-01-06 18:23] LABS: SARS Covid-2 Antigen Positive (Negative)
[2021-01-06] MEDS: sodium chloride 0.9% 1,000 ML 999 ML IV (18:27)
[2021-01-06] MEDS: calcium gluconate 0.1 gm/mL 10% SDV 10mL 1 GM IVP (18:28)
[2021-01-06] MEDS: dextrose 50% syringe 50 mL IVP (18:28)
[2021-01-06] MEDS: insulin regular-human 100 units/1 mL 10 UNIT IVP (18:29)
--- NOTE | 2021-01-06 19:15 | PC.NURSE ---
patient wants to be discharged so he can get back to [place] so he can drive himself to [place] to the hospital.
--- NOTE | 2021-01-06 19:57 | PM.CONSULT ---
Providers/Reason For Consult Consulting Physician/Specialty*: lacey sher md / telenephrology Reason for Consult*: CIRILO, hyperkalemia, metabolic acidosis Primary Care Provider: Cade Muhammad DO History of Present Illness History of Present Illness Connor Raza II is a 65 year old male h/o COPD/ asbestos, htn, hypothyroidism, gout. Pt here w/ fevers and worsening SOB. Pt was diagnosed w/ COVID-19+ SARS PNA- pt found to have CIRILO, hyperkalemia, and inc AGMA. Pt is being admitted to hospital and renal is called to consult. Review of Systems General: Reports: 10 or more systems reviewed and unremarkable except in HPI and below Narrative: weak, sob, poor appetite, denies Urinary complaints, + lung disease, nausea, no cp, no persaud, + weak, denies taking nsaid's Meds/Allergies Home Medications and Allergies Home Medications Medication Instructions Recorded Confirmed Last Taken Type albuterol sulfate 90 mcg/actuation 1 inh INHALATION .COMPLEX PRN gm 06/15/19 07/02/19 Unknown History aerosol inhaler ascorbate calcium (vitamin C) 500 500 mg PO DAILY 06/15/19 07/02/19 Unknown History mg capsule biotin 300 mcg tablet 300 mcg PO DAILY 06/15/19 07/02/19 Unknown History cyanocobalamin (vitamin B-12) 1,000 mcg PO DAILY 06/15/19 07/02/19 Unknown History 1,000 mcg capsule ipratropium 20 mcg-albuterol 100 2 puff INHALATION BID gm 06/15/19 07/02/19 Unknown History mcg/actuation mist for inhalation lisinopril 10 mg tablet 10 mg PO DAILY 06/15/19 07/02/19 Unknown History vanhkcwjtysl-ywdxlbvn-ktdbtb tablet 1 tab PO DAILY 06/15/19 07/02/19 Unknown History omeprazole 20 mg capsule,delayed 20 mg PO DAILY 06/15/19 07/02/19 Unknown History release triamcinolone acetonide 0.5 % 1 applic TOPICAL BID 06/15/19 07/02/19 Unknown History topical cream budesonide-formoterol HFA 160 2 puff INHALATION BID #10.2 gm 07/05/19 Unknown Rx mcg-4.5 mcg/actuation aerosol inhaler ipratropium 0.5 mg-albuterol 3 mg 1 ml INHALATION QID PRN #180 ml 04/21/20 Unknown Rx (2.5 mg base)/3 mL nebulization soln atenolol 50 mg tablet 50 mg PO DAILY #30 tab 09/17/19 Unknown Rx mupirocin 2 % topical ointment 1 applic TOPICAL BID PRN #22 gm 10/11/19 Unknown Rx ergocalciferol (vitamin D2) 50,000 50,000 unit PO .weekly tab 11/05/19 Unknown History unit tablet levothyroxine 112 mcg capsule 112 mcg PO DAILY #30 cap 11/14/19 Unknown Rx simvastatin 20 mg tablet 20 mg PO DAILY #30 tab 11/14/19 Unknown Rx allopurinol 200 mg PO DAILY 01/06/21 01/06/21 01/06/21 History amitriptyline 25 mg PO BEDTIME 01/06/21 01/06/21 01/05/21 History ascorbate calcium-bioflavonoid 1 tab PO DAILY 01/06/21 01/06/21 01/06/21 History [Layne-C with Bioflavonoids] furosemide See Rx Instructions .ROUTE .COMPLEX 01/06/21 01/06/21 01/06/21 History oxymetazoline [Nasal [place] 12 hour 2 spray INTRANASAL Q12H PRN 01/06/21 01/06/21 01/06/21 History Sinus] potassium chloride See Rx Instructions .ROUTE .COMPLEX 01/06/21 01/06/21 01/06/21 History prednisone See Rx Instructions .ROUTE .COMPLEX 01/06/21 01/06/21 01/06/21 History terbinafine HCl 25 mg PO DAILY 01/06/21 01/06/21 01/06/21 History Allergies Allergy/AdvReac Type Severity Reaction Status Date / Time temazepam [From Restoril] Allergy ALGY-Hives Verified 07/02/19 11:29 Vitals/I&O/Wt Last Vital Signs Temp 97.4 F L 01/06/21 16:16 Pulse 77 01/06/21 19:14 Resp 18 01/06/21 19:14 BP 96/50 01/06/21 19:14 Pulse Ox 93 01/06/21 19:14 Weight last 48 hrs Weight 95.254 kg Physical Exam Narrative: EXAM NARRATIVE: vs noted- uncomfortable, SOB on nc 02 heent- nc/at, eomi, anicteric neck- supple lungs good air movement heart reg abd soft, nt, nd, +BS ext no edema neuro- a,a, o x 3 pulses + Data Micro: Micro: Microbiology 01/06/21 18:00 Blood Culture - Pr eliminary Blood SPECIMEN [facility] 01/06/21 17:39 Blood Culture - Pr eliminary Blood SPECIMEN [facility] A&P Additional A&P Information 65 yr old man 1. covid-19+- if rx w/ remdesivir- please half dose or QOD- as he has CIRILO 2. CIRILO-check ck, urine studies, renal us, anca, anti-gbm, tete level -likely prerenal vs ATN- on tete-i. concerned for COVID- renal disease -give ivf and monitor uop and chemistries 3. hyperkalemia- from CIRILO and tete-i- rx medically and monitor chem 7- every 4- 6 hrs -hold tete-i 4. inc AGMA- check lactate -likely from CIRILO 5. granuloma on cxr- check tete level 6. hypotension from COVID-19. hold bp meds 7. check tsh informed consent obtained from pt for telehealth visit pt seen and examine dw/ rN- telehealth visit case discussed w/ pt RN, and physician time spent 55 minutes Consult Attestations Medical Necessity Statement: covid-19, cirilo, hyperkalemia, met acidosis Time Spent in Patient Care: Greater than 35 minutes Coding Level of Care Code Acute Pot Pusher for Luis Paula
[2021-01-06] MEDS: albuterol 8 gm MDI 2 PUFF INHALATION (20:05)
[2021-01-06] MEDS: LORazepam 2 mg/mL INJ 1 mL IVP (20:17)
[2021-01-06] MEDS: sodium chloride 0.9% 500 ML 999 ML IV (20:17)
[2021-01-06 21:31] LABS: Bilirubin Urine Neg (Negative); Blood Urine 3+ (Negative); Glucose Urine UA Norm (Normal); Ketones Urine Negative (Negative); Leukocyte Esterase Urine Negative (Negative); Nitrate Urine Negative (Negative); Protein Urine Neg (Negative); RBC Urine 0-4 /hpf (0-2); Specific Gravity, Urine 1.015 (1.005-1.030); Squamous Epithelial Cell Urine 0-4 /hpf (0-5); Urine Appearance Clear (CLEAR); Urine Color Yellow (Yellow); Urobilinogen Urine Norm (Negative); WBC Urine 0-4 /hpf (0-5); pH Urine 5 (5-7)
[2021-01-06 21:32] LABS: Add Urine Culture? No; Bacteria Urine TRACE /hpf; Mucus Urine TRACE /hpf; Other Casts Urine WAXY /lpf
[2021-01-06 21:34] LABS: Potassium, Radom Urine 34 mmol/L; Urine Random Chloride 15 mmol/L; Urine Random Sodium 56 mmol/L
[2021-01-06 21:45] LABS: Hepatitis C Virus Antibody Non-Reactive (Nonreactive)
[2021-01-06 22:12] LABS: Alanine Aminotransferase 38 U/L (0-41); Albumin Level 3.3 g/dL (3.5-5.2); Alkaline Phosphatase 57 IU/L (40-130); Anion Gap 27.1 (5-19); Aspartate Amino Transferase 68 U/L (0-40); Calcium 7.2 mg/dL (8.5-10.5); Carbon Dioxide 14 mmol/L (22-29); Chloride 102 mmol/L (98-107); Globulin 2.4 g/dL (1.3-4.6); Glucose 56 mg/dL (65-115); Potassium 6.1 mmol/L (3.5-5.1); Sodium 137 mmol/L (136-145); Thyroid Stimulating Hormone 0.49 uIU/mL (0.27-4.20); Total Bilirubin 0.3 mg/dL (0.15-1.2); Total Protein 5.7 g/dL (6.6-8.7); Uric Acid 8.3 mg/dL (3.4-7.0)
--- NOTE | 2021-01-06 22:16 | XRR_ITS ---
PROCEDURE INFORMATION: Exam: XR Chest Exam date and time: 01/06/2021 10:16 PM Age: 65 years old Clinical indication: Shortness of breath; Additional info: SOB TECHNIQUE: Imaging protocol: XR of the chest. Views: 1 view. COMPARISON: CR (CHEST, ) 01/06/2021 5:36 PM FINDINGS: Lungs: Mild prominence of the pulmonary interstitium in the lower lungs. No focal airspace consolidation. Small scattered granulomas. Pleural spaces: Unremarkable. No pleural effusion. No pneumothorax. Heart/Mediastinum: Cardiac silhouette is unremarkable. Bones/joints: Unremarkable. XR/XR chest 1V portable [id number] IMPRESSION: Prominent pulmonary interstitial pattern in the lower lungs. Recommend correlation for atypical pneumonia.
[2021-01-06 22:35] LABS: Blood Urea Nitrogen 145 mg/dL (8-23); Creatine Phosphokinase 2769 U/L (39-308); Osmolality Calculated 329 mOsm/kg (285-295)
--- NOTE | 2021-01-06 22:48 | XRR_ITS ---
PROCEDURE INFORMATION: Exam: XR Chest Exam date and time: 01/06/2021 10:48 PM Age: 65 years old Clinical indication: Device placement; Ett placement (vent status); Additional info: Intubation TECHNIQUE: Imaging protocol: XR of the chest. Views: 1 view. COMPARISON: CR (CHEST, ) 01/06/2021 10:14 PM FINDINGS: Tubes, catheters and devices: Endotracheal tube is 4.6 cm above mathew. Lungs: Background emphysema. No focal lung consolidation. Pleural spaces: Unremarkable. No pleural effusion. No pneumothorax. Heart/Mediastinum: Unremarkable. No cardiomegaly. Bones/joints: Unremarkable. XR/XR chest 1V portable [id number] IMPRESSION: Satisfactory endotracheal intubation.
[2021-01-06] MEDS: propofol 1,000 MG/100 ML INJ 2.86 MG IV (22:54)
--- NOTE | 2021-01-06 22:57 | PC.NURSE ---
etomidate 20 mg, vecuronium 10 mg. pt intubated per Dr. Gresham at 2244. 8 ETT, 26 at the lip, positive color change on colorometric, pos chest rise and fall, auscultated b/l breath sounds, no epigastric sound noted. vT 500 peep 8 o2 60%
--- NOTE | 2021-01-06 23:24 | PC.NURSE ---
2200 pt found wandering in hallway and had pulled out IV. pt appeared confused and dyspneic. coworker directed pt back to his room and applied pressure dressing to IV site that was bleeding bright red blood.
[2021-01-07] VITALS (30 sets, daily range): BP systolic 65–160; BP diastolic 38–91; PULSE 54–109; RESP 14–22; TEMP 36.6; O2SAT 94–100
[2021-01-07 00:04] LABS: ABG PCO2 45.7 mmHg (35-45); Arterial Blood Gas Hematocrit 50.9 % (42-52); Base Excess ABG -16.9 mmol/L (-2.0-2.0); Blood Gas Allen Test Pos; Blood Gas Sample Site Radial, right; Blood Gas Sample Type Arterial; HCO3 ABG 13.2 mmol/L (22-26); Oxygen Device VENT
[2021-01-07 00:22] LABS: ABG PH Result 7.07 (7.35-7.45)
[2021-01-07 01:16] LABS: ABG PCO2 49.2 mmHg (35-45); Arterial Blood Gas Hematocrit 51.6 % (42-52); Base Excess ABG -16.5 mmol/L (-2.0-2.0); Blood Gas Allen Test Pos; Blood Gas Sample Site Radial, right; Blood Gas Sample Type Arterial; Oxygen Device VENT
[2021-01-07 01:52] LABS: Basophils % 0.2 %; Hematocrit 52.7 % (42.0-52.0); Hemoglobin 16.4 g/dL (11.7-16.6); Lymphocytes # 1.4 10^3/uL (0.8-4.8); Lymphocytes % 7.1 %; Mean Corpuscular HGB Conc 31.1 g/dL (30.0-36.0); Mean Corpuscular Hemoglobin 29.5 pg (28.0-34.0); Mean Corpuscular Volume 94.8 fl (80-94); Mean Platelet Volume 11.4 fL (7.4-10.4); Monocytes # 1.5 10^3/uL (0.2-0.9); Monocytes % 7.4 %; Neutrophils # 16.55 10^3/uL (1.8-7.7); Neutrophils % 83.9 %; Nucleated Red Blood Cells % 0.1 %; Platelet Count 206 10^3/cmm (130-400); Red Blood Count 5.56 10^6/uL (4.1-5.3); Red Cell Distribution Width 14.6 % (12.1-15.1); White Blood Count 19.7 10^3/uL (4.0-10.0)
--- NOTE | 2021-01-07 01:53 | USCV_ITS ---
Connor Raza Age: 65 Gender: M : 1955 Exam Date: 01/07/2021 06:54 Ordering Phys: Awilda Galvan MD Technologist: Exam Location: [facility] Indication: COVID ON VENT HISTORY: Lower extremity edema. PROCEDURES: The venous duplex Doppler examination of both lower extremities was performed in the standard fashion. The following venous structures were evaluated: common femoral vein, profunda vein, proximal portion of the greater saphenous vein, superficial femoral vein, and the popliteal vein. In addition, the posterior tibial and peroneal trunk were evaluated. Bilaterally, the common femoral, superficial femoral, profunda femoral, popliteal, posterior tibial, greater saphenous veins, and the peroneal trunk were identified and interrogated in the standard fashion. These veins were found to be easily compressible with spontaneous blood flow. No evidence of insufficiency or thrombus noted. FINDINGS: Normal 2-D Doppler and augmentation and compressibility throughout the lower extremity venous structures. Additional imaging through the proximal calf veins also reveals no thrombus. Limited evaluation of the greater saphenous vein is patent with no thrombus.. CONCLUSIONS No evidence of DVT in the above-mentioned identifiable veins. No evidence of thrombosis in the proximal segments of the greater saphenous vein Dr Noni Aguirre MD [facility] (Electronically Signed) Final Date: 07 January 2021 22:42 S
--- NOTE | 2021-01-07 02:00 | PM.HP ---
Providers/Chief Complaint Admitting Physician: Awilda Galvan MD Primary Care Provider: Cade Muhammad DO Chief Complaint: SOB/ DIZZY/ HEADACHE History of Present Illness PAtient currently intubated, history obtaine by [facility] review. Connor Raza II is a 65 year old male with PMH ?COPD, Psoriasis , HTN presented to ER c/o 3 days of shortness of breath weakness dizziness and diarrhea. His oxygen saturation on room air in the exam room was in the mid 80s, initially improved to low 90s with 2 to 3 L by nasal cannula, however with escalating 02 requirements through the night eventually leading to intubation and mechanical ventilation. Labs notable for COVID rapid Ag +, acute renal failure with cr 6.5 (previously WNL from 2019), hyperkalemia, rhabdomyolysis. CXR with B/L interstitial pneumonitis , small scattered granulomas, D dimer 0.7.Urine output ~1L in [place]. Transfer was attempted to outside facility as ICU bed currently N/A at [facility], however these attempts have been unsuccessful thus far. Review of Systems General: Reports: ROS unobtainable due to endotracheal tube Medications/Allergies Home Medications Medication Instructions Recorded Confirmed Last Taken Type albuterol sulfate 90 mcg/actuation 1 inh INHALATION .COMPLEX PRN gm 06/15/19 01/06/21 01/06/21 History aerosol inhaler ascorbate calcium (vitamin C) 500 500 mg PO DAILY 06/15/19 01/06/21 01/06/21 History mg capsule biotin 300 mcg tablet 300 mcg PO DAILY 06/15/19 01/06/21 Unknown History cyanocobalamin (vitamin B-12) 1,000 mcg PO DAILY 06/15/19 01/06/21 01/06/21 History 1,000 mcg capsule ipratropium 20 mcg-albuterol 100 2 puff INHALATION BID gm 06/15/19 01/06/21 01/06/21 History mcg/actuation mist for inhalation lisinopril 10 mg tablet 10 mg PO DAILY 06/15/19 01/06/21 Unknown History fgbctqblhwxd-yrtnkpxd-mjizhq tablet 1 tab PO DAILY 06/15/19 01/06/21 01/06/21 History omeprazole 20 mg capsule,delayed 20 mg PO DAILY 06/15/19 01/06/21 01/06/21 History release triamcinolone acetonide 0.5 % 1 applic TOPICAL BID 06/15/19 01/06/21 01/06/21 History topical cream budesonide-formoterol HFA 160 2 puff INHALATION BID #10.2 gm 07/05/19 01/06/21 01/06/21 Rx mcg-4.5 mcg/actuation aerosol inhaler ipratropium 0.5 mg-albuterol 3 mg 1 ml INHALATION QID PRN #180 ml 09/04/19 01/06/21 01/06/21 Rx (2.5 mg base)/3 mL nebulization soln atenolol 50 mg tablet 50 mg PO DAILY #30 tab 09/17/19 01/06/21 01/06/21 Rx mupirocin 2 % topical ointment 1 applic TOPICAL BID PRN #22 gm 10/11/19 01/06/21 01/06/21 Rx ergocalciferol (vitamin D2) 50,000 50,000 unit PO Q7D tab 11/05/19 01/06/21 Unknown History unit tablet levothyroxine 112 mcg capsule 112 mcg PO DAILY #30 cap 11/14/19 01/06/21 01/06/21 Rx simvastatin 20 mg tablet 20 mg PO DAILY #30 tab 11/14/19 01/06/21 Unknown Rx allopurinol 200 mg PO DAILY 01/06/21 01/06/21 01/06/21 History amitriptyline 25 mg PO BEDTIME 01/06/21 01/06/21 01/05/21 History ascorbate calcium-bioflavonoid 1 tab PO DAILY 01/06/21 01/06/21 01/06/21 History [Layne-C with Bioflavonoids] furosemide See Rx Instructions .ROUTE .COMPLEX 01/06/21 01/06/21 01/06/21 History oxymetazoline [Nasal [place] 12 hour 2 spray INTRANASAL Q12H PRN 01/06/21 01/06/21 01/06/21 History Sinus] potassium chloride See Rx Instructions .ROUTE .COMPLEX 01/06/21 01/06/21 01/06/21 History prednisone See Rx Instructions .ROUTE .COMPLEX 01/06/21 01/06/21 01/06/21 History terbinafine HCl 25 mg PO DAILY 01/06/21 01/06/21 01/06/21 History Allergies Allergy/AdvReac Type Severity Reaction Status Date / Time temazepam [From Restoril] Allergy ALGY-Hives Verified 07/02/19 11:29 PFSH Acute PFSH: Medical History (Updated 01/07/21 @ 04:04 by Awilda Galvan MD) Bipolar affective Depression Hemolysis Hyperlipidemia Hypertension Hypothyroidism Neuropathy Psoriasis Surgical History (Updated 01/07/21 @ 02:02 by Awilda aGlvan MD) History of cholecystectomy (1989) History of knee surgery Right and left History of shoulder surgery (1990) Vitals/I&O/Wt Last Vital Signs Temp 97.4 F L 01/06/21 16:16 Pulse 77 01/07/21 01:41 Resp 16 01/07/21 01:41 BP 160/91 01/07/21 01:41 Pulse Ox 100 01/07/21 01:41 01/06/21 01/06/21 01/07/21 14:59 22:59 06:59 Intake Total 1500 / 1500 Balance 1500 / 1500 Weight last 48 hrs Weight 95.254 kg Physical Exam Narrative: EXAM NARRATIVE: General: Intubated, sedated with fentanyl+ propofol HEENT: pupils bilaterally equal and reactive Chest: Normal vesicular breath sounds anteriorly CVS: S1-S2 regular, no murmurs, no tachycardia, no gallops, no rubs Abdomen: Soft, nontender, no organomegaly, bowel sounds present Neuro: unable as assess at this time Urinary Catheter Management^: Latex: Cath Placed During This Visit: yes Urinary Catheter Date of Insertion: 01/06/21 Urinary Catheter Time of Insertion: 22:15 Data : 01/07/21 01:46 01/07/21 01:46 Micro: Microbiology 01/06/21 18:00 Blood Culture - Preliminary Blood SPECIMEN COLLECTED 01/06/21 17:39 Blood Culture - Preliminary Blood SPECIMEN COLLECTED Attestation for Other Data: I personally reviewed and interpreted the following: Other data: Laboratory Results WBC 19.7 10^3/uL (4.0-10.0) H 01/07/21 01:46 RBC 5.56 10^6/uL (4.1-5.3) H 01/07/21 01:46 Hgb 16.4 g/dL (11.7-16.6) 01/07/21 01:46 Hct 52.7 % (42.0-52.0) H 01/07/21 01:46 MCV 94.8 fl (80-94) H 01/07/21 01:46 MCH 29.5 pg (28.0-34.0) 01/07/21 01:46 MCHC 31.1 g/dL (30.0-36.0) 01/07/21 01:46 RDW 14.6 % (12.1-15.1) 01/07/21 01:46 Plt Count 206 10^3/cmm (130-400) 01/07/21 01:46 MPV 11.4 fL (7.4-10.4) H 01/07/21 01:46 Neut % (Auto) 83.9 % 01/07/21 01:46 Lymph % (Auto) 7.1 % 01/07/21 01:46 [place] % (Auto) 7.4 % 01/07/21 01:46 Eos % (Auto) 0.0 % 01/07/21 01:46 Baso % (Auto) 0.2 % 01/07/21 01:46 Neut # (Auto) 16.55 10^3/uL (1.8-7.7) H 01/07/21 01:46 Lymph # (Auto) 1.4 10^3/uL (0.8-4.8) 01/07/21 01:46 [place] # (Auto) 1.5 10^3/uL (0.2-0.9) H 01/07/21 01:46 Eos # (Auto) 0.0 10^3/uL (0.0-0.8) 01/07/21 01:46 Baso # (Auto) 0.0 10^3/uL (0.0-0.1) 01/07/21 01:46 Nucleated RBC % (auto) 0.1 % 01/07/21 01:46 Nucleated RBCs # 0.0 /100WBC 01/07/21 01:46 D-Dimer 0.83 ug/mIFEU (0-0.59) H 01/06/21 22:25 Specimen Type Arterial 01/07/21 01:00 Sample Site Radial, right 01/07/21 01:00 ABG pH 7.19 (7.35-7.45) L 01/06/21 18:03 ABG pCO2 49.2 mmHg (35-45) H 01/07/21 01:00 ABG pO2 164.0 mmHg (80.0-100.0) H 01/07/21 01:00 ABG HCO3 14.0 mmol/L (22-26) L 01/07/21 01:00 ABG Base Excess -16.5 mmol/L (-2.0-2.0) L 01/07/21 01:00 Justin Test Pos 01/07/21 01:00 Hematocrit 51.6 % (42-52) 01/07/21 01:00 O2 Delivery Device Vent 01/07/21 01:00 O2 Liters/Min 3.0 % 01/06/21 18:03 Mechanical Rate 14.0 01/06/21 11:35 FiO2 60.0 % 01/07/21 01:00 PEEP 8.0 cmH20 01/06/21 11:35 Food Service Aide ID [place]acy[place] 01/07/21 01:00 Sodium 135 mmol/L (136-145) L 01/07/21 01:46 Potassium 6.8 mmol/L (3.5-5.1) H* 01/07/21 01:46 Chloride 101 mmol/L (98-107) 01/07/21 01:46 Carbon Dioxide 14 mmol/L (22-29) L 01/07/21 01:46 Anion Gap 26.8 (5-19) H 01/07/21 01:46 BUN 146 mg/dL (8-23) H* 01/07/21 01:46 Creatinine 5.6 mg/dL (0.7-1.2) H* 01/07/21 01:46 GFR Calculation 10.2 mL/min (90-130) L 01/07/21 01:46 Glucose 80 mg/dL (65-115) 01/07/21 01:46 POC Glucose 69 mg/dL (70-110) L 01/07/21 02:06 Calculated Osmolality 327 mOsm/kg (285-295) H 01/07/21 01:46 Lactic Acid 0.9 mmol/L (0.5-2.2) 01/06/21 16:47 Uric Acid 8.1 mg/dL (3.4-7.0) H 01/07/21 01:46 Calcium 7.7 mg/dL (8.5-10.5) L 01/07/21 01:46 Phosphorus 10.5 mg/dL (2.5-4.5) H* 01/07/21 01:46 Magnesium 2.3 mg/dL (1.7-2.3) 01/07/21 01:46 Total Bilirubin 0.7 mg/dL (0.15-1.2) 01/07/21 01:46 AST 119 U/L (0-40) H 01/07/21 01:46 ALT 65 U/L (0-41) H 01/07/21 01:46 Alkaline Phosphatase 76 IU/L (40-130) 01/07/21 01:46 Creatine Kinase 3320 U/L (39-308) H* 01/07/21 01:46 C-Reactive Protein 15.1 mg/L (0.0-4.9) H 01/07/21 01:46 Total Protein 6.4 g/dL (6.6-8.7) L 01/07/21 01:46 Albumin 3.8 g/dL (3.5-5.2) 01/07/21 01:46 Globulin 2.6 g/dL (1.3-4.6) 01/07/21 01:46 TSH 0.49 uIU/mL (0.27-4.20) 01/06/21 21:38 PTH Intact 306.4 pg/mL (15-65) H 01/07/21 01:46 Calcium (PTH Intact) 7.5 mg/dL (8.5-10.5) L 01/07/21 01:46 Random Cortisol 2.12 ug/dL (2.47-19.5) L 01/07/21 01:46 Urine Color Yellow (Yellow) 01/06/21 20:25 Urine Appearance Clear (CLEAR) 01/06/21 20:25 Urine pH 5 (5-7) 01/06/21 20:25 Ur Specific [place] 1.015 (1.005-1.030) 01/06/21 20:25 Urine Protein Neg (Negative) 01/06/21 20:25 Urine Glucose (UA) Norm (Normal) 01/06/21 20:25 Urine Ketones Negative (Negative) 01/06/21 20:25 Urine Blood 3+ (Negative) H 01/06/21 20:25 Urine Nitrate Negative (Negative) 01/06/21 20:25 Urine Bilirubin Neg (Negative) 01/06/21 20:25 Urine Urobilinogen Norm mg/dL (Negative) 01/06/21 20:25 Ur Leukocyte Esterase Negative (Negative) 01/06/21 20:25 Urine RBC 0-4 /hpf (0-2) H 01/06/21 20:25 Urine WBC 0-4 /hpf (0-5) H 01/06/21 20:25 Ur Squamous Epith Cells 0-4 /hpf (0-5) H 01/06/21 20:25 Amorphous Sediment Not Reportable 01/06/21 20:25 Urine Bacteria Trace /hpf (NONE) 01/06/21 20:25 Other Casts Waxy /lpf 01/06/21 20:25 Urine Mucus Trace /hpf 01/06/21 20:25 Ur Random Sodium 56 mmol/L 01/06/21 20:25 Ur Random Potassium 34 mmol/L 01/06/21 20:25 Ur Random Chloride 15 mmol/L 01/06/21 20:25 Hepatitis C Antibody Non-reactive (Nonreactive) 01/06/21 16:47 SARS-CoV-2 Ag (Rapid) Positive (Negative) H 01/06/21 17:39 Impressions Chest X-Ray 01/06/21 22:48 IMPRESSION: Satisfactory endotracheal intubation. A&P Assessment and plan (1) Acute renal failure: Appreciate nephrology recommendations Cr improving with hydration to 5.6, urine output ~1L in bag, however continues to have hyperkalemia and HAGMA, will likely need HD in am Surgery consult for placement of temp HD cath Status: Acute Qualifiers: Acute renal failure type: unspecified Qualified Code(s): N17.9 - Acute kidney failure, unspecified (2) Pneumonia due to COVID-19 virus: Remdisivir dose adjusted to 100mg iv q48h per renal recommendation dexamethasone 6mg IVP daily duoneb q6h, budesonide q12h empiric CTX and azithromycin trend inflammatory markers including CRP, LDH, D dimer, Ferritin CTA PE unable to be performed at this time as patient not stable enough to move, avoiding contrast for now, D dimer mildly elevated. Check LE duplex and echo for R heart strain. check troponin series given acute decompensation Status: Acute (3) Respiratory failure with hypoxia and hypercapnia: Intubated, as above pulm/CCM consult in am Fentanyl + propofol for sedation Status: Acute Qualifiers: Chronicity: acute Qualified Code(s): J96.01 - Acute respiratory failure with hypoxia; J96.02 - Acute respiratory failure with hypercapnia (4) Sepsis: Meets criteria with leukocytosis, tachycardia, tachypnea, end organ failure Received sepsis bolus in ER Abx as above Blood cx taken prior to abx use Status: Acute Qualifiers: Sepsis type: sepsis due to unspecified organism Sepsis acute organ dysfunction status: with acute organ dysfunction Acute renal failure type: unspecified Severe sepsis shock status: without septic shock Severe sepsis acute organ dysfunction type: acute renal failure Qualified Code(s): A41.9 - Sepsis, unspecified organism; R65.20 - Severe sepsis without septic shock; N17.9 - Acute kidney failure, unspecified (5) Hypoglycemia: Status: Acute (6) Metabolic acidosis: Status: Acute (7) Hyperkalemia: Insulin/Dextrose, albuterol, Kayexalate, Ca gluconate refractory thus far Likely HD Status: Acute Attestations Medical Necessity Statement*: >2midnight admission will be needed for above defined care Coding Level of Care Code Acute Checkroom Chief for [facility] Fwd Diagnoses Acute renal failure N17.9 Acute renal failure type: unspecified Pneumonia due to COVID-19 virus U07.1; J12.82 Respiratory failure with hypoxia and hypercapnia J96.01; J96.02 Chronicity: acute Sepsis A41.9; R65.20; N17.9 Sepsis type: sepsis due to unspecified organism Sepsis acute organ dysfunction status: with acute organ dysfunction Acute renal failure type: unspecified Severe sepsis shock status: without septic shock Severe sepsis acute organ dysfunction type: acute renal failure Hypoglycemia E16.2 Metabolic acidosis E87.2 Hyperkalemia E87.5
--- NOTE | 2021-01-07 02:07 | PC.NURSE ---
fingerstick glucose 69; dr. garza notified, ordered 1 amp of D50W
[2021-01-07 02:10] LABS: Glucose Point of Care 69 mg/dL (70-110)
[2021-01-07] MEDS: dextrose 50% syringe 50 mL IVP ×2 (02:13→03:33)
[2021-01-07 02:17] LABS: Alanine Aminotransferase 65 U/L (0-41); Albumin Level 3.8 g/dL (3.5-5.2); Alkaline Phosphatase 76 IU/L (40-130); Anion Gap 26.8 (5-19); Aspartate Amino Transferase 119 U/L (0-40); Calcium 7.5 mg/dL (8.5-10.5); Calcium 7.7 mg/dL (8.5-10.5); Carbon Dioxide 14 mmol/L (22-29); Chloride 101 mmol/L (98-107); Globulin 2.6 g/dL (1.3-4.6); Glomerular Filtration Rate 10.2 mL/min (90-130); Glucose 80 mg/dL (65-115); Magnesium 2.3 mg/dL (1.7-2.3); Sodium 135 mmol/L (136-145); Total Bilirubin 0.7 mg/dL (0.15-1.2); Total Protein 6.4 g/dL (6.6-8.7); Uric Acid 8.1 mg/dL (3.4-7.0)
[2021-01-07 02:24] LABS: Parathyroid Hormone 306.4 pg/mL (15-65)
[2021-01-07 02:24] LABS: D Dimer 0.83 ug/mIFEU (0-0.59)
[2021-01-07 02:28] LABS: Cortisol Random 2.12 ug/dL (2.47-19.5)
[2021-01-07 02:31] LABS: C Reactive Protein 15.1 mg/L (0.0-4.9)
[2021-01-07 02:40] LABS: Osmolality Calculated 327 mOsm/kg (285-295)
[2021-01-07 02:41] LABS: Creatine Phosphokinase 3320 U/L (39-308); Phosphorus 10.5 mg/dL (2.5-4.5); Potassium 6.8 mmol/L (3.5-5.1)
[2021-01-07 02:42] LABS: Blood Urea Nitrogen 146 mg/dL (8-23)
[2021-01-07] MEDS: azithromycin 500 MG in sodium chloride 0.9% 250 ML 250 MG IV (02:49)
[2021-01-07] MEDS: famotidine 20 mg/2 mL INJ IVP (02:50)
[2021-01-07] MEDS: dexamethasone 4 mg/mL INJ 6 MG IVP (02:51)
[2021-01-07] MEDS: heparin 5,000 unit/mL INJ 1 mL 5000 UNIT SUBCUT (02:52)
[2021-01-07] MEDS: calcium gluconate 0.1 gm/mL 10% SDV 10mL 1 GM IVP (03:28)
[2021-01-07] MEDS: remdesivir 100 MG in sodium chloride 0.9% (100 ml) 100 ML IV (03:30)
[2021-01-07] MEDS: insulin regular-human 100 units/1 mL 10 UNIT IVP (03:31)
[2021-01-07] MEDS: cefTRIAXone 1,000 MG in sodium chloride 0.9% (plus) 50 ML 100 MG IV (03:31)
[2021-01-07] MEDS: sodium polystyrene sulfonate 15 gm/60 mL Btl PO (03:33)
--- NOTE | 2021-01-07 04:13 | PC.NURSE ---
Addendum entered by Sylvia Berry RN 01/07/21 04:19: propofol 50 mcg/kg/min and fentanyl 150 mcg/hr Original Note: Dr Galvan came by to inform that this patient would be getting a catheter for dialysis around 0600. Dr. Galvan states that we can go up to Propofol 50 mg and Fentanyl 150 for sedation. Stated we can start levophed if needed for hypotension if the patient needs sedation but has low bp. emptied 1300 ml from pt solares cath bag, clear yellow urine.
--- NOTE | 2021-01-07 04:30 | USCV_ITS ---
Connor Raza Age: 65 Gender: M : 1955 Exam Date: 01/07/2021 06:36 Ordering Phys: Awilda Galvan MD Technologist: Exam Location: [facility] – [place]_ Indication: COVID ON VENT BP: 85 / 49 HR: 60 Rhythm: Sinus Technical Quality: MEASUREMENTS (Male / Female) Normal Values 2D ECHO LV Diastolic Diameter PLAX 4.1 cm 4.2 - 5.9 / 3.9 - 5.3 cm LV Systolic Diameter PLAX 2.2 cm IVS Diastolic Thickness 0.9 cm 0.6 - 1.0 / 0.6 - 0.9 cm IVS Systolic Thickness 1.3 cm LVPW Diastolic Thickness 1.2 cm 0.6 - 1.0 / 0.6 - 0.9 cm LVPW Systolic Thickness 1.2 cm LV Ejection Fraction 2D Teich 64.8 % FINDINGS Left Ventricle Possibly normal LV size and ejection fraction. Right Ventricle Normal RV size ejection fraction. Right Atrium Possibly of normal size Left Atrium Possibly of normal size Mitral Valve No gross abnormalities noted Aortic Valve Could not be visualized Tricuspid Valve No gross abnormalities noted Pulmonic Valve Could not be visualized Pericardium No pericardial effusion. Aorta Could not be visualized CONCLUSIONS Possibly normal LV size and ejection fraction 55%. Possibly normal cardiac chamber sizes. No pericardial effusion Technically very limited study. Only subcostal views were obtained Dr Noni Aguirre MD [facility] (Electronically Signed) Final Date: 07 January 2021 22:39 S
[2021-01-07 04:37] LABS: Troponin(5th) Baseline 73 ng/L (0-15)
[2021-01-07 04:46] LABS: Hepatitis B Surface AB 3.5 (11.5-1000); Hepatitis B Surface Antigen Non-Reactive (Nonreactive); Hepatitis C Virus Antibody Non-Reactive (Nonreactive)
[2021-01-07 05:15] LABS: Amphetamines Screen Urine Positive (Negative); Barbiturates Screen Urine Negative (Negative); Benzodiazepines Screen Urine Negative (Negative); Cocaine Screen Urine Negative (Negative); Opiate Screen Urine Negative (Negative); PCP Screen Urine Negative (Negative); THC Screen Urine Negative (Negative)
[2021-01-07 05:32] LABS: Troponin 5 2HR 97.69 ng/L (0-15)
[2021-01-07 05:35] LABS: Alanine Aminotransferase 51 U/L (0-41); Albumin Level 3.3 g/dL (3.5-5.2); Alkaline Phosphatase 63 IU/L (40-130); Anion Gap 24.9 (5-19); Aspartate Amino Transferase 80 U/L (0-40); Calcium 7.6 mg/dL (8.5-10.5); Carbon Dioxide 16 mmol/L (22-29); Chloride 102 mmol/L (98-107); Globulin 1.8 g/dL (1.3-4.6); Glucose 96 mg/dL (65-115); Potassium 5.9 mmol/L (3.5-5.1); Sodium 137 mmol/L (136-145); Total Bilirubin 0.3 mg/dL (0.15-1.2); Total Protein 5.1 g/dL (6.6-8.7)
[2021-01-07] MEDS: vecuronium 10 mg SDV IVP (05:35)
[2021-01-07 05:42] LABS: Osmolality Calculated 331 mOsm/kg (285-295)
[2021-01-07 05:44] LABS: Blood Urea Nitrogen 145 mg/dL (8-23); INR 1.12 (0.8-1.2); Troponin 5 2HR Delta 24.69 ABS# (0-10)
--- NOTE | 2021-01-07 05:54 | PM.CONSULT ---
Providers/Reason For Consult Consulting Physician/Specialty*: General Surgery Aj Mackay MD Reason for Consult*: Urgent hemodialysis catheter placement request. Attending Physician: Awilda Galvan MD Primary Care Provider: Cade Muhammad DO History of Present Illness History of Present Illness Connor Raza II is a 65 year old male who reportedly came in the emergency room last night with dizziness and shortness of breath. He deteriorated through the night and eventually was intubated. He was found to be COVID-19 positive. He was also found to be in acute renal failure and after nephrology consultation an urgent temporary hemodialysis catheter placement was requested. Review of Systems General: Reports: ROS unobtainable due to endotracheal tube Meds/Allergies Home Medications and Allergies Home Medications Medication Instructions Recorded Confirmed Last Taken Type albuterol sulfate 90 mcg/actuation 1 inh INHALATION .COMPLEX PRN gm 06/15/19 01/06/21 01/06/21 History aerosol inhaler ascorbate calcium (vitamin C) 500 500 mg PO DAILY 06/15/19 01/06/21 01/06/21 History mg capsule biotin 300 mcg tablet 300 mcg PO DAILY 06/15/19 01/06/21 Unknown History cyanocobalamin (vitamin B-12) 1,000 mcg PO DAILY 06/15/19 01/06/21 01/06/21 History 1,000 mcg capsule ipratropium 20 mcg-albuterol 100 2 puff INHALATION BID gm 06/15/19 01/06/21 01/06/21 History mcg/actuation mist for inhalation lisinopril 10 mg tablet 10 mg PO DAILY 06/15/19 01/06/21 Unknown History dmgtdnvcenkl-zxzoxjhc-fsrssu tablet 1 tab PO DAILY 06/15/19 01/06/21 01/06/21 History omeprazole 20 mg capsule,delayed 20 mg PO DAILY 06/15/19 01/06/21 01/06/21 History release triamcinolone acetonide 0.5 % 1 applic TOPICAL BID 06/15/19 01/06/21 01/06/21 History topical cream budesonide-formoterol HFA 160 2 puff INHALATION BID #10.2 gm 07/05/19 01/06/21 01/06/21 Rx mcg-4.5 mcg/actuation aerosol inhaler ipratropium 0.5 mg-albuterol 3 mg 1 ml INHALATION QID PRN #180 ml 09/04/19 01/06/21 01/06/21 Rx (2.5 mg base)/3 mL nebulization soln atenolol 50 mg tablet 50 mg PO DAILY #30 tab 09/17/19 01/06/21 01/06/21 Rx mupirocin 2 % topical ointment 1 applic TOPICAL BID PRN #22 gm 10/11/19 01/06/21 01/06/21 Rx ergocalciferol (vitamin D2) 50,000 50,000 unit PO Q7D tab 11/05/19 01/06/21 Unknown History unit tablet levothyroxine 112 mcg capsule 112 mcg PO DAILY #30 cap 11/14/19 01/06/21 01/06/21 Rx simvastatin 20 mg tablet 20 mg PO DAILY #30 tab 11/14/19 01/06/21 Unknown Rx allopurinol 200 mg PO DAILY 01/06/21 01/06/21 01/06/21 History amitriptyline 25 mg PO BEDTIME 01/06/21 01/06/21 01/05/21 History ascorbate calcium-bioflavonoid 1 tab PO DAILY 01/06/21 01/06/21 01/06/21 History [[place]-C with Bioflavonoids] furosemide See Rx Instructions .ROUTE .COMPLEX 01/06/21 01/06/21 01/06/21 History oxymetazoline [Nasal [place] 12 hour 2 spray INTRANASAL Q12H PRN 01/06/21 01/06/21 01/06/21 History Sinus] potassium chloride See Rx Instructions .ROUTE .COMPLEX 01/06/21 01/06/21 01/06/21 History prednisone See Rx Instructions .ROUTE .COMPLEX 01/06/21 01/06/21 01/06/21 History terbinafine HCl 25 mg PO DAILY 01/06/21 01/06/21 01/06/21 History Allergies Allergy/AdvReac Type Severity Reaction Status Date / Time temazepam [From Restoril] Allergy ALGY-Hives Verified 07/02/19 11:29 Current Medications Current Medications Generic Name Dose Route Start Last Admin Trade Name Freq PRN Reason Stop Dose Admin Albuterol/Ipratropium 3 ml 01/07/21 03:00 01/07/21 04:44 Ipratropium-Albuterol 3 Ml Neb INHALATION Not Given Q6H.RESPIRATORY TACHO Dexamethasone 6 mg 01/07/21 02:00 01/07/21 02:51 Dexamethasone 4 Mg/Ml Inj IVP 6 mg Q24H TACHO Administration Famotidine 20 mg 01/07/21 02:00 01/07/21 02:50 Famotidine 20 Mg/2 Ml Inj IVP 20 mg Q12H TACHO Administration Heparin Sodium (Beef Lung) 5,000 unit 01/07/21 02:00 01/07/21 02:52 Heparin 5,000 Unit/Ml Inj 1 Ml SUBCUT 5,000 unit Q12H TACHO Administration Sodium Bicarbonate 75 meq/ 1,000 mls @ 125 mls/hr 01/06/21 20:15 01/06/21 21:50 Sodium Chloride IV 125 mls/hr .Q8H TACHO Administration Propofol 1,000 mg in 100 mls @ 0 mls/hr 01/06/21 22:45 01/07/21 04:18 Diprivan IV 10 mcg/kg/min .Q0M TACHO 5.72 mls/hr Titration Protocol Per Protocol Fentanyl 1,000 mcg/ Sodium 100 mls @ 0 mls/hr 01/06/21 23:00 01/07/21 05:01 Chloride IV 75 mcg/hr .Q0M TACHO 7.5 mls/hr Titration Protocol Per Protocol Ceftriaxone Sodium 1,000 mg/ 50 mls @ 100 mls/hr 01/07/21 02:00 01/07/21 03:35 Sodium Chloride IV Infused Q24H TACHO Infusion Protocol Remdesivir 100 mg/ Sodium 100 mls @ 100 mls/hr 01/07/21 02:00 01/07/21 04:48 Chloride IV 01/15/21 02:59 Infused Q48H TACHO Infusion Azithromycin 500 mg/ Sodium 250 mls @ 250 mls/hr 01/07/21 02:00 01/07/21 04:12 Chloride IV 01/10/21 01:59 Infused Q24H TACHO Infusion Protocol Norepinephrine Bitartrate 4 mg 254 mls @ 0 mls/hr 01/07/21 04:30 01/07/21 05:20 / Dextrose IV 14 mcg/min .Q0M TACHO 53.34 mls/hr Titration Protocol Per Protocol PFSH Acute PFSH: Medical History (Updated 01/07/21 @ 04:04 by Awilda Galvan MD) Bipolar affective Depression Hemolysis Hyperlipidemia Hypertension Hypothyroidism Neuropathy Psoriasis Surgical History (Updated 01/07/21 @ 02:02 by Awilda Galvan MD) History of cholecystectomy (1989) History of knee surgery Right and left History of shoulder surgery (1990) Vitals/I&O/Wt Last Vital Signs Temp 97.4 F L 01/06/21 16:16 Pulse 59 L 01/07/21 05:15 Resp 16 01/07/21 05:15 BP 79/51 01/07/21 05:15 Pulse Ox 96 01/07/21 05:15 01/06/21 01/06/21 01/07/21 14:59 22:59 06:59 Intake Total 1500 / 2000.477 501.477 / 2000.477 Balance 1500 2000.477 501.477 / 2000.477 Weight last 48 hrs Weight 210 lb Physical Exam Narrative: EXAM NARRATIVE: The patient was found to be sedated and intubated in the emergency department, but was still restless at times. Eventually he was sedated enough by the ER staff that he was not moving significantly for the procedure. The heart is regular. The chest reveals symmetric air movement. The abdomen was mildly to moderately obese and was soft. Right femoral pulse was easily palpable. The lower extremities reveal no edema. Urinary Catheter Management^: Latex: Cath Placed During This Visit: yes Urinary Catheter Date of Insertion: 01/06/21 Urinary Catheter Time of Insertion: 22:15 Data Micro: Micro: Microbiology 01/06/21 18:00 Blood Culture - Pr eliminary Blood SPECIMEN [facility] 01/06/21 17:39 Blood Culture - Pr eliminary Blood SPECIMEN [facility] A&P Assessment and plan (1) Acute renal failure: A 16.5 [place] temporary hemodialysis catheter kit was obtained. The right femoral region was prepped and draped in a sterile fashion. 1% lidocaine was used for local anesthetic. The right femoral vein was accessed on the first pass with a needle and syringe as evidenced by the return of dark nonpulsatile blood. The J-wire was easily passed down the needle and the needle was withdrawn. A small incision was made at the skin level at the entrance point of the J-wire. The tract was sequentially dilated with dilators before the 16.5 [place] dialysis catheter was easily passed into the vein over the wire. The wire was removed. Both ports aspirated very well and flushed easily with saline. The site was sterilely dressed. The hemodialysis catheter was ready for use just before 6 AM 01/07/2021. Status: Acute Qualifiers: Acute renal failure type: unspecified Qualified Code(s): N17.9 - Acute kidney failure, unspecified Consult Attestations Medical Necessity Statement: See admitting service's notation. Coding Level of Care Code Acute Sales Designer for [facility] Diagnoses Acute renal failure N17.9 Acute renal failure type: unspecified
--- NOTE | 2021-01-07 07:00 | US_ITS ---
WS: [id number] RENAL ULTRASOUND HISTORY: be[place] COMPARISON: None available. TECHNIQUE: 2-D and color Doppler imaging of the kidney submitted. Right kidney: 10.2 cm x 5.5 cm x 5.8 cm. Normal echogenicity with no hydronephrosis or mass. Left kidney: 9.3 cm x 5.2 cm x 4.8 cm. Normal echogenicity with no hydronephrosis or mass. Aorta: Normal. Urinary Bladder: Normal distention. US/US renal BI* [id number] IMPRESSION: Normal renal ultrasound.
--- NOTE | 2021-01-07 07:16 | P.PN_ITS ---
Subjective Subjective: Interval history: sedated, intubated, on pressers, oliguric- can not obtain a ROS Medications: Reviewed: Yes Medication Review Details: Current Medications Acetaminophen (Acetaminophen 325 Mg Tablet) 650 mg PO Q6H PRN PRN Reason: Mild/Mod Pain Or Temp >/= 101 Albuterol/Ipratropium (Ipratropium-Albuterol 3 Ml Neb) 3 ml INHALATION Q6H.RESPIRATORY TACHO Last Admin: 01/07/21 04:44 Dose: Not Given Documented by: Atorvastatin Calcium (Atorvastatin 40 Mg Tablet) 20 mg PO DAILY TACHO Budesonide (Budesonide 0.5 Mg/2 Ml Neb) 0.5 mg INHALATION BID.RESPIRATORY TACHO Dexamethasone (Dexamethasone 4 Mg/Ml Inj) 6 mg IVP Q24H TACHO Last Admin: 01/07/21 02:51 Dose: 6 mg Documented by: Famotidine (Famotidine 20 Mg/2 Ml Inj) 20 mg IVP Q12H TACHO Last Admin: 01/07/21 02:50 Dose: 20 mg Documented by: Heparin Sodium (Beef Lung) (Heparin 5,000 Unit/Ml Inj 1 Ml) 5,000 unit SUBCUT Q12H TACHO Last Admin: 01/07/21 02:52 Dose: 5,000 unit Documented by: Heparin Sodium (Beef Lung) (Heparin 5,000 Unit/Ml Inj 1 Ml) 0 unit IV PRN PRN; Protocol PRN Reason: Heparin weight-base protocol Sodium Bicarbonate 75 meq/ (Sodium Chloride) 1,000 mls @ 125 mls/hr IV .Q8H TACHO Last Admin: 01/06/21 21:50 Dose: 125 mls/hr Documented by: Propofol (Diprivan) 1,000 mg in 100 mls @ 0 mls/hr IV .Q0M TACHO; Protocol Last Titration: 01/07/21 04:18 Dose: 10 mcg/kg/min, 5.72 mls/hr Documented by: Fentanyl 1,000 mcg/ Sodium (Chloride) 100 mls @ 0 mls/hr IV .Q0M TACHO; Protocol Last Titration: 01/07/21 06:00 Dose: 100 mcg/hr, 10 mls/hr Documented by: Ceftriaxone Sodium 1,000 mg/ (Sodium Chloride) 50 mls @ 100 mls/hr IV Q24H TACHO; Protocol Last Infusion: 01/07/21 03:35 Dose: Infused Documented by: Remdesivir 100 mg/ Sodium (Chloride) 100 mls @ 100 mls/hr IV Q48H COUNTS INCLUDE 234 BEDS AT THE [facility] Stop: 01/15/21 02:59 Last Infusion: 01/07/21 04:48 Dose: Infused Documented by: Azithromycin 500 mg/ Sodium (Chloride) 250 mls @ 250 mls/hr IV Q24H TACHO; Protocol Stop: 01/10/21 01:59 Last Infusion: 01/07/21 04:12 Dose: Infused Documented by: Albumin Human (Albumin) 12.5 gm in 50 mls @ 60 mls/hr IV PRN PRN PRN Reason: Hypotension and/or symptomatic Norepinephrine Bitartrate 4 mg (/ Dextrose) 254 mls @ 0 mls/hr IV .Q0M COUNTS INCLUDE 234 BEDS AT THE [facility]; Protocol Last Titration: 01/07/21 06:36 Dose: 16 mcg/min, 60.96 mls/hr Documented by: Heparin Sodium/Sodium Chloride (Heparin Drip) 25,000 unit in 500 mls @ 0 mls/hr IV .Q0M COUNTS INCLUDE 234 BEDS AT THE [facility]; Protocol Levothyroxine Sodium (Levothyroxine 112 Mcg Tablet) 112 mcg PO DAILY COUNTS INCLUDE 234 BEDS AT THE [facility] Ondansetron HCl (Ondansetron 2 Mg/Ml Sdv 2 Ml) 4 mg IVP Q8H PRN PRN Reason: vomiting, or N/V if npo Vitals/I&O/Wt Last Vital Signs Temp 97.4 F L 01/06/21 16:16 Pulse 59 L 01/07/21 05:15 Resp 16 01/07/21 05:15 BP 79/51 01/07/21 05:15 Pulse Ox 96 01/07/21 05:15 01/06/21 01/07/21 01/07/21 22:59 06:59 14:59 Intake Total 1500 / 1500 576.416 / 2076.416 Balance 1500 / 1500 576.416 / 2076.416 Weight last 48 hrs Weight 95.254 kg Physical Exam Narrative: EXAM NARRATIVE: vs noted- on levophed @ 16 intubated= fio2-50%, TV 500, PEEP 8, RR16 heent- nc/at, eomi, anicteric neck- supple lungs good air movement heart reg abd soft, nt, nd, +BS ext no edema neuro- sedated and paralyzed no rashes nopted HD access= rt femoral Urinary Catheter Management^: Latex: Cath Placed During This Visit: yes Reason for Continuing Indwelling Catheter: Acute Urinary Retention or O bstruction Urinary Catheter Date of Insertion: 01/06/21 Urinary Catheter Time of Insertion: 22:15 Data : 01/07/21 01:46 01/07/21 05:05 Micro: Microbiology 01/06/21 18:00 Blood Culture - Preliminary Blood SPECIMEN COLLECTED 01/06/21 17:39 Blood Culture - Preliminary Blood SPECIMEN COLLECTED A&P Additional A&P Information 65 yr old man 1. covid-19+- renal dose meds 2. CIRILO-now oliguric, intubated, hyperkalemia. 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 hyperkalemia- from CIRILO and tete-i- improving. yet remains high -hold tete-i -start HD 4. inc AGMA- check lactate -likely from CIRILO 5. hyperphosphatemia- from renal failure- monitor w/ dialysis -pth 306- likely cirilo for a while or underlying CKD -pt had + amphetamines on ur drug screen- can cause renal disease 6. mild rhabdomyolysis- ck 3320- not high enough to cause CIRILO- will monitor 7. granuloma on cxr- check tete level 8. hypotension from COVID-19. hold bp meds. septic shock per Medicine/ ID 9. informed consent obtained from pt yesterday for telehealth visit pt seen and examined w/ rN- telehealth visit case discussed w/ RN and Dr. Thorpe -dialyssi orders reviewed w/ HD rN time spent 30 minutes Attestations Medical Necessity Statement*: cirilo, vdrf, covid-19+ Time Spent in Patient Care: 16 - 35 minutes Coding Level of Care Code Acute Patient Registration Supervisor for [facility]
[2021-01-07] MEDS: heparin drip 25,000 UNIT/500 ML PREMIX 26.67 UNIT IV (07:58)
[2021-01-07] MEDS: sodium chloride 0.9% 500 ML 999 ML IV (08:04)
[2021-01-07] MEDS: piperacillin-tazobactam 3.375 GM in sodium chloride 0.9% (plus) 50 ML IV (08:52)
[2021-01-07] MEDS: budesonide 0.5 mg/2 mL Neb INHALATION (09:00)
[2021-01-07 09:23] LABS: Glucose Point of Care 116 mg/dL (70-110)
[2021-01-07] MEDS: dextrose 5%-sod chloride 0.9% 1,000 ML 75 ML IV (09:30)
--- NOTE | 2021-01-07 10:13 | ECG_ITS ---
[facility] Test Date: 2021-01-07 Pat Name: Connor Raza Department: Room: EDIP Gender: Male Actuary Clerk: : [id number] Requested By: Awilda Galvan Order Number: [id number] Reading MD: CLARISSA MERINO Measurements Intervals [place] Rate: 61 P: 72 [place]: 147 QRS: 38 QRSD: 102 T: 56 QT: 397 QTc: 403 Interpretive Statements SINUS RHYTHM Compared to ECG 01/06/2021 18:39:46 ST (T wave) deviation no longer present Myocardial infarct finding no longer present Electronically Signed On 01-07-2021 21:10:44 CDT by CLARISSA MERINO [id number]
[2021-01-07 10:40] LABS: ABG PCO2 46.2 mmHg (35-45); ABG PH Result 7.26 (7.35-7.45); Arterial Blood Gas Hematocrit 48.6 % (42-52); Base Excess ABG -6.8 mmol/L (-2.0-2.0); Blood Gas Allen Test Pos; Blood Gas Sample Site Radial, right; Blood Gas Sample Type Arterial; HCO3 ABG 20.5 mmol/L (22-26); Oxygen Device VENT
[2021-01-07 10:58] LABS: Troponin 5 6HR 60.52 ng/L (0-15)
--- NOTE | 2021-01-07 11:34 | XR_ITS ---
WS: [id number] Exam: XR chest 1V portable [id number] Date/Time of Exam: 01/07/2021 11:51 AM Reason For Exam: Tube placement Comparison 01/06/2021. An NG tube has been placed and appears to enter the body the stomach. An ET tube is in place ending a t about the level of T5. The lungs are adequately ventilated. No infiltrates or pleural effusions are seen. Unremarkable cardiomediastinal structures. Regional bony elements are intact. XR/XR chest 1V portable [id number] IMPRESSION: 1. Enteric tube entering the body the stomach. 2. No acute cardiopulmonary finding. 3. ET tube appearing to be in satisfactory position.
[2021-01-07 12:06] LABS: Glucose Point of Care 149 mg/dL (70-110)
--- NOTE | 2021-01-07 12:40 | PC.HD ---
patient dialyzed in ED 11. Unable to weigh patient as there is no bed scale on his gurney and he is unable to get up to weigh. Pt is intubated and sedated and on a ventilator. Levophed drip currently at 16mcg/min to support BP. Pt is unable to give consent due to illness and sedation. Treatment initiated at Dr Hewitt's verbal statement of emergency need, and Dr Davis signed emergency need consent when he came to check on patient.
--- NOTE | 2021-01-07 12:53 | PC.HD ---
Appx 90 minutes into tx, SHEET HEATER suddenly increased to >250 and blood appeared dark and thick. Dr Howell notified with instructions to give fluid boluses as needed to flush dialyzer and circuit. SHEET HEATER decreased to <240 after each flush.
--- NOTE | 2021-01-07 14:00 | P.TS_ITS ---
Transfer Summary Providers Date of Admission: 01/07/21 00:25 Date of Discharge: 01/07/21 Attending Provider at Admission: Awilda Galvan MD Attending Provider at Transfer: Doc Davis MD Primary Care Provider: Cade Muhammad DO Anticipated Date of Transfer: Anticipated date of transfer: 01/07/21 Receiving Facility & Provider: Receiving Provider: [] Receiving facility: [] Diagnoses at Discharge Discharge Diagnosis (1) Acute renal failure: Status: Acute Qualifiers: Acute renal failure type: unspecified Qualified Code(s): N17.9 - Acute kidney failure, unspecified Reason for Visit Reason for Visit: SOB/ DIZZY/ HEADACHE Hospital Course Hospital Course PAtient currently intubated, [facility] Connor Raza [facility] is a 65 year old male with PMH ?COPD, Psoriasis , HTN presented to ER c/o 3 days of shortness of breath weakness dizziness and diarrhea. His oxygen saturation on room air in the exam room was in the mid 80s, initially improved to low 90s with 2 to 3 L by nasal cannula, however with escalating 02 requirements through the night eventually leading to intubation and mechanical ventilation. Blood work was notable for leukocytosis with white count of 19.7, mildly elevated D-dimer, potassium of 6.1 with high anion gap metabolic acidosis with BUN of 145, creatinine of 5.7 with CPK of 2700 with rapid COVID-19 and antigen positive with urine output of around 1 L with toxicology positive for meth with ABG showing metabolic acidosis with pH of 7.0. Patient was started on mechanical ventilation, right femoral Shiley was placed and underwent emergent dialysis. He was started on broad-spectrum antibiotics, IV remdesivir, dexamethasone and steroid inhalation therapy. During hospitalization patient did not require any pressor support to maintain his blood pressures. Due to unavailability of bed in ICU further transfer was sought to a different medical facility. Physical Exam Narrative: EXAM NARRATIVE: General: Intubated, sedated with fentanyl+ propofol HEENT: pupils bilaterally equal and reactive Chest: Normal vesicular breath sounds anteriorly CVS: S1-S2 regular, no murmurs, no tachycardia, no gallops, no rubs Abdomen: Soft, nontender, no organomegaly, bowel sounds present Neuro: unable as assess at this time Urinary Catheter Management^: Latex: Cath Placed During This Visit: yes Reason for Continuing Indwelling Catheter: Acute Urinary Retention or Obstruction Urinary Catheter Date of Insertion: 01/06/21 Urinary Catheter Time of Insertion: 22:15 TS Data Data Completed and Pending: Completed Studies During Hospitalization Category Date Time Status XR chest 1V elizabet ble [id number] Stat Exams 01/06/21 17:17 Completed XR chest 1V elizabet ble [id number] Stat Exams 01/06/21 22:16 Completed XR chest 1V elizabet ble [id number] Stat Exams 01/06/21 22:48 Completed XR chest 1V elizabet ble [id number] Stat Exams 01/07/21 11:34 Completed US renal BI* [id number] Routine Ultrasound 01/07/21 07:00 Completed Pending at discharge Category Date Time Status ABG FULL [Arteria l Blood Gas Full] Stat Lab 01/07/21 03:40 Ordered ABG ONLY [Arteria l Blood Gas W/O Co ox] Timed Lab 01/07/21 01:00 Results KIMO Screen w/ Ref namrata Routine Lab 01/06/21 21:38 Received Angiotensin Conve rting Enzyme AM LA BS Lab 01/07/21 04:00 Received Anti Double Stran ded DNA AB Routine Lab 01/06/21 21:38 Received Anti-Neutrophil C ytoplasmic AB AM L ABS Lab 01/07/21 04:00 Received Arterial Blood Ga s Full AM LABS Lab 01/07/21 04:00 Ordered Blood Culture Sta t Lab 01/06/21 18:00 Results Coronavirus Test [facility] Stat Lab 01/06/21 17:39 Received MRSA by PCR Routi ne Lab 01/07/21 05:22 Ordered Vitamin D 1,25 Di hydroxy Routine Lab 01/06/21 21:38 [place] [id number] Routin e Ultrasound 01/07/21 01:53 Taken CV. echo limited [id number] Routine Ultrasound 01/07/21 04:30 Taken Addt'l Data from Hospital Stay: Laboratory Results WBC 19.7 10^3/uL (4.0 -10.0) H 01/07/21 01:46 RBC 5.56 10^6/uL (4.1 -5.3) H 01/07/21 01:46 Hgb 16.4 g/dL (11.7-1 6.6) 01/07/21 01:46 Hct 52.7 % (42.0-52.0 ) H 01/07/21 01:46 MCV 94.8 fl (80-94) H 01/07/21 01:46 MCH 29.5 pg (28.0-34. 0) 01/07/21 01:46 MCHC 31.1 g/dL (30.0-3 6.0) 01/07/21 01:46 RDW 14.6 % (12.1-15.1 ) 01/07/21 01:46 Plt Count Cancelled 01/07/21 05:05 MPV 11.4 fL (7.4-10.4 ) H 01/07/21 01:46 Neut % (Auto) 83.9 % 01/07/21 01:46 Lymph % (Auto) 7.1 % 01/07/21 01:46 [place] % (Auto) 7.4 % 01/07/21 01:46 Eos % (Auto) 0.0 % 01/07/21 01:46 Baso % (Auto) 0.2 % 01/07/21 01:46 Neut # (Auto) 16.55 10^3/uL (1. 8-7.7) H 01/07/21 01:46 Lymph # (Auto) 1.4 10^3/uL (0.8- 4.8) 01/07/21 01:46 [place] # (Auto) 1.5 10^3/uL (0.2- 0.9) H 01/07/21 01:46 Eos # (Auto) 0.0 10^3/uL (0.0- 0.8) 01/07/21 01:46 Baso # (Auto) 0.0 10^3/uL (0.0- 0.1) 01/07/21 01:46 Nucleated RBC % (a uto) 0.1 % 01/07/21 01:46 Nucleated RBCs # 0.0 /100WBC 01/07/21 01:46 PT 14.80 SECONDS (12 .1-14.9) 01/07/21 05:05 INR 1.12 (0.8-1.2) 01/07/21 05:05 APTT 26.0 SECONDS (23. 9-36.7) 01/07/21 05:05 D-Dimer 0.83 ug/mIFEU (0- 0.59) H 01/06/21 22:25 Specimen Type Arterial 01/07/21 10:28 Sample Site Radial, right 01/07/21 10:28 ABG pH 7.26 (7.35-7.45) L 01/07/21 10:28 ABG pCO2 46.2 mmHg (35-45) H 01/07/21 10:28 ABG pO2 120.0 mmHg (80.0- 100.0) H 01/07/21 10:28 ABG HCO3 20.5 mmol/L (22-2 6) L 01/07/21 10:28 ABG Base Excess -6.8 mmol/L (-2.0 -2.0) L 01/07/21 10:28 Justin Test Pos 01/07/21 10:28 Hematocrit 48.6 % (42-52) 01/07/21 10:28 O2 Delivery Device Vent 01/07/21 10:28 O2 Liters/Min 3.0 % 01/06/21 18:03 Mechanical Rate 14.0 01/06/21 11:35 FiO2 50.0 % 01/07/21 10:28 PEEP 8.0 cmH20 01/07/21 10:28 Viscosity Tester ID jmn 01/07/21 10:28 Sodium 137 mmol/L (136-1 45) 01/07/21 05:05 Potassium 5.9 mmol/L (3.5-5 .1) H 01/07/21 05:05 Chloride 102 mmol/L (98-10 7) 01/07/21 05:05 Carbon Dioxide 16 mmol/L (22-29) L 01/07/21 05:05 Anion Gap 24.9 (5-19) H 01/07/21 05:05 BUN 145 mg/dL (8-23) H* 01/07/21 05:05 Creatinine 5.7 mg/dL (0.7-1. 2) H* 01/07/21 05:05 GFR Calculation 10.0 mL/min (90-1 30) L 01/07/21 05:05 Glucose 96 mg/dL (65-115) 01/07/21 05:05 POC Glucose 149 mg/dL (70-110 ) H 01/07/21 11:48 Calculated Osmolal ity 331 mOsm/kg (285- 295) H 01/07/21 05:05 Lactic Acid 0.9 mmol/L (0.5-2 .2) 01/06/21 16:47 Uric Acid 8.1 mg/dL (3.4-7. 0) H 01/07/21 01:46 Calcium 7.6 mg/dL (8.5-10 .5) L 01/07/21 05:05 Phosphorus 10.5 mg/dL (2.5-4 .5) H* 01/07/21 01:46 Magnesium 2.3 mg/dL (1.7-2. 3) 01/07/21 01:46 Total Bilirubin 0.3 mg/dL (0.15-1 .2) 01/07/21 05:05 AST 80 U/L (0-40) H 01/07/21 05:05 ALT 51 U/L (0-41) H 01/07/21 05:05 Alkaline Phosphata se 63 IU/L (40-130) 01/07/21 05:05 Creatine Kinase 3320 U/L (39-308) H* 01/07/21 01:46 Troponin T Baselin e 73 ng/L (0-15) H 01/07/21 01:46 Troponin T 120 Min [place] 97.69 ng/L (0-15) H 01/07/21 05:05 Delta Troponin T 24.69 ABS# (0-10) H* 01/07/21 05:05 Troponin T Hi Sens 6Hr 60.52 ng/L (0-15) H 01/07/21 10:31 Troponin T Hi Sens 6Hr Delta TNP 01/07/21 10:31 C-Reactive Protein 15.1 mg/L (0.0-4. 9) H 01/07/21 01:46 Total Protein 5.1 g/dL (6.6-8.7 ) L D 01/07/21 05:05 Albumin 3.3 g/dL (3.5-5.2 ) L 01/07/21 05:05 Globulin 1.8 g/dL (1.3-4.6 ) 01/07/21 05:05 TSH 0.49 uIU/mL (0.27 -4.20) 01/06/21 21:38 PTH Intact 306.4 pg/mL (15-6 5) H 01/07/21 01:46 Calcium (PTH Intac t) 7.5 mg/dL (8.5-10 .5) L 01/07/21 01:46 Random Cortisol 2.12 ug/dL (2.47- 19.5) L 01/07/21 01:46 Urine Color Yellow (Yellow) 01/06/21 20:25 Urine Appearance Clear (CLEAR) 01/06/21 20:25 Urine pH 5 (5-7) 01/06/21 20:25 Ur Specific Gravit y 1.015 (1.005-1.0 30) 01/06/21 20:25 Urine Protein Neg (Negative) 01/06/21 20:25 Urine Glucose (UA) Norm (Normal) 01/06/21 20:25 Urine Ketones Negative (Negati ve) 01/06/21 20:25 Urine Blood 3+ (Negative) H 01/06/21 20:25 Urine Nitrate Negative (Negati ve) 01/06/21 20:25 Urine Bilirubin Neg (Negative) 01/06/21 20:25 Urine Urobilinogen Norm mg/dL (Negat gabriel) 01/06/21 20:25 Ur Leukocyte Layne ase Negative (Negati ve) 01/06/21 20:25 Urine RBC 0-4 /hpf (0-2) H 01/06/21 20:25 Urine WBC 0-4 /hpf (0-5) H 01/06/21 20:25 Ur Squamous Epith Cells 0-4 /hpf (0-5) H 01/06/21 20:25 Amorphous Sediment Not Reportable 01/06/21 20:25 Urine Bacteria Trace /hpf (NONE) 01/06/21 20:25 Other Casts Waxy /lpf 01/06/21 20:25 Urine Mucus Trace /hpf 01/06/21 20:25 Ur Random Sodium 56 mmol/L 01/06/21 20:25 Ur Random Potassiu m 34 mmol/L 01/06/21 20:25 Ur Random Chloride 15 mmol/L 01/06/21 20:25 Urine Opiates Scre en Negative ng/mL (N egative) 01/06/21 20:25 Ur Barbiturates Sc reen Negative ng/mL (N egative) 01/06/21 20:25 Ur Phencyclidine S crn Negative ng/mL (N egative) 01/06/21 20:25 Ur Amphetamines Sc reen Positive ng/mL (N egative) H 01/06/21 20:25 U Benzodiazepines Scrn Negative ng/mL (N egative) 01/06/21 20:25 Urine Cocaine Scre en Negative ng/mL (N egative) 01/06/21 20:25 U Marijuana (THC) Screen Negative ng/mL (N egative) 01/06/21 20:25 Hep Bs Antigen Non-reactive (No nreactive) 01/07/21 01:46 Hep Bs Antibody 3.5 (11.5-1000) L 01/07/21 01:46 Hepatitis C Antibo dy Non-reactive (No nreactive) 01/07/21 01:46 SARS-CoV-2 Ag (Rap id) Positive (Negati ve) H 01/06/21 17:39 Impressions Renal Ultrasound 01/07/21 07:00 IMPRESSION: Normal renal ultrasound. Chest X-Ray 01/07/21 11:34 IMPRESSION: 1. Enteric tube entering the body the stomach. 2. No acute cardiopulmonary finding. 3. ET tube appearing to be in satisfactory position. Microbiology 01/06/21 18:00 Blood Blood Culture - Preliminary SPECIMEN COLLECTED 01/06/21 17:39 Blood Blood Culture - Preliminary SPECIMEN COLLECTED Vitals: Last Vital Signs Temp 97.9 F 01/07/21 12:50 Pulse 54 L 01/07/21 12:50 Resp 18 01/07/21 12:50 BP 120/68 01/07/21 12:50 Pulse Ox 98 01/07/21 11:01 TS Medications Medications Home Medications albuterol sulfate 90 mcg/actuation aerosol inhaler 1 inh INHALATION .COMPLEX PRN gm 06/15/19 [History Confirmed 01/06/21] ascorbate calcium (vitamin C) 500 mg capsule 500 mg PO DAILY 06/15/19 [History Confirmed 01/06/21] biotin 300 mcg tablet 300 mcg PO DAILY 06/15/19 [History Confirmed 01/06/21] cyanocobalamin (vitamin B-12) 1,000 mcg capsule 1,000 mcg PO DAILY 06/15/19 [History Confirmed 01/06/21] ipratropium 20 mcg-albuterol 100 mcg/actuation mist for inhalation 2 puff INHALATION BID gm 06/15/19 [History Confirmed 01/06/21] lisinopril 10 mg tablet 10 mg PO DAILY 06/15/19 [History Confirmed 01/06/21] jxnmxfkmbvet-mfmwohfv-egfjzw tablet 1 tab PO DAILY 06/15/19 [History Confirmed 01/06/21] omeprazole 20 mg capsule,delayed release 20 mg PO DAILY 06/15/19 [History Confirmed 01/06/21] triamcinolone acetonide 0.5 % topical cream 1 applic TOPICAL BID 06/15/19 [History Confirmed 01/06/21] budesonide-formoterol HFA 160 mcg-4.5 mcg/actuation aerosol inhaler 2 puff INHALATION BID #10.2 gm 07/05/19 [Rx Confirmed 01/06/21] ipratropium 0.5 mg-albuterol 3 mg (2.5 mg base)/3 mL nebulization soln 1 ml INHALATION QID PRN #180 ml 09/04/19 [Rx Confirmed 01/06/21] atenolol 50 mg tablet 50 mg PO DAILY #30 tab 09/17/19 [Rx Confirmed 01/06/21] mupirocin 2 % topical ointment 1 applic TOPICAL BID PRN #22 gm 10/11/19 [Rx Confirmed 01/06/21] ergocalciferol (vitamin D2) 50,000 unit tablet 50,000 unit PO Q7D tab 11/05/19 [History Confirmed 01/06/21] levothyroxine 112 mcg capsule 112 mcg PO DAILY #30 cap 11/14/19 [Rx Confirmed 01/06/21] simvastatin 20 mg tablet 20 mg PO DAILY #30 tab 11/14/19 [Rx Confirmed 01/06/21] allopurinol 200 mg PO DAILY 01/06/21 [History Confirmed 01/06/21] amitriptyline 25 mg PO BEDTIME 01/06/21 [History Confirmed 01/06/21] ascorbate calcium-bioflavonoid [[place]-C with Bioflavonoids] 1 tab PO DAILY 01/06/21 [History Confirmed 01/06/21] furosemide See Rx Instructions .ROUTE .COMPLEX 01/06/21 [History Confirmed 01/06/21] oxymetazoline [Nasal [place] 12 hour Sinus] 2 spray INTRANASAL Q12H PRN 01/06/21 [History Confirmed 01/06/21] potassium chloride See Rx Instructions .ROUTE .COMPLEX 01/06/21 [History Confirmed 01/06/21] prednisone See Rx Instructions .ROUTE .COMPLEX 01/06/21 [History Confirmed 01/06/21] terbinafine HCl 25 mg PO DAILY 01/06/21 [History Confirmed 01/06/21] Discharge Plan Discharge Patient Disposition: Xfer Other Condition: Stable Prescriptions: No Action omeprazole 20 mg capsule,delayed release(DR/EC) 20 mg PO DAILY RF: 0 lisinopril 10 mg tablet 10 mg PO DAILY RF: 0 Combivent Respimat 20-100 mcg/actuation mist 2 puff INHALATION BID RF: 0 triamcinolone acetonide 0.5 % cream 1 applic TOPICAL BID RF: 0 ilortortmwbm-juauoark-mjcnkx Tablet 1 tab PO DAILY RF: 0 ascorbate calcium (vitamin C) 500 mg capsule 500 mg PO DAILY RF: 0 biotin 300 mcg tablet 300 mcg PO DAILY RF: 0 cyanocobalamin (vitamin B-12) 1,000 mcg capsule 1,000 mcg PO DAILY RF: 0 albuterol sulfate [Ventolin HFA] 90 mcg/actuation HFA aerosol inhaler 1 inh INHALATION .COMPLEX PRN (Reason: Shortness Of Breath) RF: 0 Symbicort 160-4.5 mcg/actuation HFA aerosol inhaler 2 puff INHALATION BID Qty: 10.2 RF: 0 ipratropium-albuterol 0.5 mg-3 mg(2.5 mg base)/3 mL solution for nebulization 1 ml INHALATION QID PRN (Reason: shortness of breath) Qty: 180 RF: 5 atenolol 50 mg tablet 50 mg PO DAILY Qty: 30 RF: 5 mupirocin 2 % ointment 1 applic TOPICAL BID PRN (Reason: infection) Qty: 22 RF: 5 ergocalciferol (vitamin D2) 50,000 unit tablet 50,000 unit PO Q7D RF: 0 levothyroxine 112 mcg capsule 112 mcg PO DAILY Qty: 30 RF: 5 simvastatin 20 mg tablet 20 mg PO DAILY Qty: 30 RF: 11 prednisone 20 mg Tablet See Rx Instructions .ROUTE .COMPLEX RF: 0 potassium chloride 10 mEq Tablet Extended Release See Rx Instructions .ROUTE .COMPLEX RF: 0 amitriptyline 25 mg Tablet 25 mg PO BEDTIME RF: 0 furosemide 20 mg Tablet See Rx Instructions .ROUTE .COMPLEX RF: 0 Nasal [place] 12 hour Sinus 0.05 % [place],Non-Aerosol 2 spray INTRANASAL Q12H PRN (Reason: UNKNOWN) RF: 0 Layen-C with Bioflavonoids 1,000-200 mg Tablet 1 tab PO DAILY RF: 0 terbinafine HCl 25 mg PO DAILY RF: 0 allopurinol 100 mg tablet 200 mg PO DAILY RF: 0 Transfer Attestations Time Spent in Transfer Care*: greater than 30 min Specific Discharge Activities: Specific discharge activities: discussing with pcp/other providers, discussing with case picker/social workers/dc planners, documenting/other paperwork and evaluating patient/reviewing data Status at Transfer: Cognitive status at transfer: other , Behavioral status at transfer: other , Functional status at transfer: other Overall status at transfer: patient is not back to baseline Quality Metrics Clinical Quality Measures: During this hospital stay, did patient experience: None Coding Level of Care Code Acute Etl Bi Developer for Luis Paula Diagnoses Acute renal failure N17.9 Acute renal failure type: unspecified
[2021-01-07 15:53] LABS: Coronavirus Test Green County Detected
[2021-01-08 09:08] LABS: ABG PH Result 7.06 (7.35-7.45)
[2021-01-08 11:27] LABS: Angiotensin Converting Enzyme <5 U/L (9-67)
[2021-01-08 13:24] LABS: Anti-Double Strand DNA AB <1 IU/mL
[2021-01-08 16:03] LABS: Anti-Nuclear Antibody Screen NEGATIVE (NEGATIVE)
[2021-01-10 11:22] LABS: ANCA Interp Negative (Negative)
[2021-01-10 19:31] LABS: Vit D 1,25 (Oh)2, Total 42 pg/mL (18-72); Vit D2 1,25 (Oh)2 32 pg/mL; Vit D3 1,25 (Oh)2 10 pg/mL
== END 2021-01-07 12:06 | disposition short-term general hospital (02) | DRG 871 ==
LOC: ER 20:48 → ER IP 01-07 04:18
PROVIDERS: Family Medicine; Internal Medicine Nephrology; Admitting Provider Student in an Organized Health Care Education/Training Program; Emergency Provider Emergency Medicine; PCP Family Medicine; Visit Provider Student in an Organized Health Care Education/Training Program
DX: A41.9 Sepsis, unspecified organism (principal); U07.1 COVID-19; J12.82 Pneumonia due to coronavirus disease 2019; J96.01 Acute respiratory failure with hypoxia; J96.02 Acute respiratory failure with hypercapnia; N17.9 Acute kidney failure, unspecified; E87.2 Acidosis; M62.82 Rhabdomyolysis; R65.20 Severe sepsis without septic shock; I95.9 Hypotension, unspecified; E87.5 Hyperkalemia; E16.2 Hypoglycemia, unspecified; E83.39 Other disorders of phosphorus metabolism; J44.9 Chronic obstructive pulmonary disease, unspecified; E78.5 Hyperlipidemia, unspecified; I10 Essential (primary) hypertension; E03.9 Hypothyroidism, unspecified; M10.9 Gout, unspecified; R78.4 Finding of other drugs of addictive potential in blood
CPT/HCPCS: 31500; 36415; 36416; 36600; 51702; 71045; 76770; 80048; 80053; 80306; 81001; 82164; 82310; 82436; 82533; 82550; 82652; 82803; 82962; 83516; 83605; 83735; 83970; 84100; 84133; 84300; 84443; 84484; 84550; 85025; 85378; 85610; 85730; 86038; 86140; 86225; 86706; 86803; 87040; 87340; 87426; 87635; 93005; 93308; 93970; 94002; 94003; 94640; 94660; 94799; 96365; 96367; 96372; 96375; 96376; 99291; 99292; J0456; J0610; J0696; J1100; J1644; J1815; J2060; J2543; J2704; J2920; J3010; J3490; J3535; J7030; J7040; J7050; J7626